=== PATIENT | female | born 1935 | race Two or more races ===

== ENCOUNTER 2016-10-25 13:31 | Emergency (ER) | payer MEDICARE, BC ==
[2016-10-25 14:05] VITALS: RESP 16
[2016-10-25] MEDS ORDERED: SODIUM CHLORIDE 0.9% 500 ML IV STA (14:25)
[2016-10-25] MEDS ORDERED: ONDANSETRON 4 MG/2 ML VIAL IVP STA (14:25)
[2016-10-25 14:33] LABS: Basophils % (A) 0 %; CHCM 33.4; Eosinophils % (A) 0 %; HCT 34.7 % (34.0-46.0); HDW 2.33; HGB 11.6 gm/dL (11.4-16.0); Luc # (Auto) 0.07; Luc % (Auto) 2; Lymphocytes # (A) 0.5 k/uL (1.0-4.8); Lymphocytes % (A) 12 %; MCH 29.2 pg (25.0-35.0); MCHC 33.4 g/dL (31.0-37.0); MCV 87.4 fL (80.0-100.0); Mean Platelet Volume 7.5; Monocytes # (A) 0.2 k/uL (0-1.0); Monocytes % (A) 4 %; Neutrophils # (A) 3.4 k/uL (1.3-7.7); Neutrophils % (A) 81 %; RBC 3.97 m/uL (3.80-5.40); RDW 13.3 % (11.5-15.5); WBC 4.2 k/uL (3.8-10.6); WBC (Perox) 4.62
[2016-10-25 14:43] LABS: ALT 32 U/L (9-52); AST 29 U/L (14-36); Alkaline Phosphatase 62 U/L (38-126); Anion Gap 9 mmol/L; Blood Urea Nitrogen 18 mg/dL (7-17); Calcium 8.6 mg/dL (8.4-10.2); Carbon Dioxide 26 mmol/L (22-30); Chloride 96 mmol/L (98-107); Glucose 128 mg/dL (74-99); Non-African American GFR(MDRD) >60 (>60 ml/min/1.73 sqM); Potassium 3.6 mmol/L (3.5-5.1); Sodium 131 mmol/L (137-145); Total Bilirubin 0.4 mg/dL (0.2-1.3); Total Protein 6.5 g/dL (6.3-8.2)
--- NOTE | 2016-10-25 14:44 | ED ---
General Adult HPI - General Chief complaint: Nausea/Vomiting/Diarrhea Stated complaint: Syncope/vomiting Time Seen by Provider: 10/25/16 14:11 Source: patient, family, EMS, RN notes reviewed Mode of arrival: EMS Limitations: no limitations - History of Present Illness Initial comments: 81-year-old female presenting for nausea and vomiting and diarrhea. Patient states that she was eating lunch and felt very nauseous and vomited and passed out. She did fall to the floor but denies any injury associated, although uncertain if she hit her head. She denies blood thinner use. Daughters state they helped her up and she was able to ambulate without issue. She was diagnosed with influenza 3 days ago at her primary doctor's office. She has not been on Tamiflu or any other medications. States she is still feeling nauseous. She states she had 3 or 4 loose bowel movements today. She denies any abdominal pain associated. She denies any lightheadedness while at rest. Denies any chest pain or shortness of breath. She has had a persistent cough. She denies fevers or chills. - Related Data Home Medications Medication Instructions Recorded Confirmed Aspirin EC [Ecotrin Low Dose] 162 mg PO DAILY 10/25/16 10/25/16 Atorvastatin Calcium [Lipitor] 10 mg PO HS 10/25/16 10/25/16 Calcium Carbonate [Calcium] 1,200 mg PO DAILY 10/25/16 10/25/16 Cholecalciferol [Vitamin D3] 5,000 unit PO DAILY 10/25/16 10/25/16 Metoprolol Succinate [Toprol XL] 25 mg PO DAILY 10/25/16 10/25/16 Olmesartan/Hydrochlorothiazide 1 tab PO DAILY 10/25/16 10/25/16 [Benicar Hct 40-12.5 mg Tablet] Previous Rx's Medication Instructions Recorded Metoclopramide HCl [Reglan] 10 mg PO Q8HR PRN #15 tablet 10/25/16 Allergies Allergy/AdvReac Type Severity Reaction Status Date / Time No Known Allergies Allergy Verified 10/25/16 15:00 Review of Systems ROS Statement: Those systems with pertinent positive or pertinent negative responses have been documented in the HPI. ROS Other: All systems not noted in ROS Statement are negative. Past Medical History Past Medical History: Hyperlipidemia, Hypertension History of Any Multi-Drug Resistant Organisms: None Reported Past Surgical History: Appendectomy, Hysterectomy Past Psychological History: No Psychological Hx Reported Smoking Status: Never smoker Past Alcohol Use History: None Reported Past Drug Use History: None Reported General Exam - General Exam Comments Initial Comments: General: Awake and Alert. No acute distress. Does not appear acutely ill. Eyes: MARIYA, EOM intact. No nystagmus. No scleral icterus. HENT: Atraumatic, normocephalic. Mucous membranes moist. Trachea midline. Neck: The neck is supple, there is no tenderness or JVD. Cardiovascular: Regular rate and rhythm. No murmur, rub, or gallop is appreciated. Distal pulses intact. Respiratory: Lungs are clear to auscultation bilaterally. No wheezes, rales, rhonchi. No respiratory distress. Gastrointestinal: Soft, Nontender. No rebound or guarding. Non-distended. No masses or organomegaly noted. No CVA tenderness. Musculoskeletal: No tenderness. Normal ROM. No gross deformity. No strength deficits. Neurological: A&Ox3. CN II-XII grossly intact, There are no obvious motor or sensory deficits. Coordination appears grossly intact. Speech is normal. Skin: Skin is warm and dry and no rashes or lesions are noted. Psychiatric: Cooperative, appropriate mood & affect, normal judgment. Limitations: no limitations Course Vital Signs 10/25/16 10/25/16 10/25/16 14:01 14:05 15:11 Temperature 96.9 F L 99.5 F 99.9 F H Pulse Rate 77 83 Respiratory 16 16 Rate Blood Pressure 127/59 141/60 O2 Sat by Pulse 98 96 Oximetry 10/25/16 15:37 Temperature 99.4 F Pulse Rate 84 Respiratory 16 Rate Blood Pressure 133/58 O2 Sat by Pulse 95 Oximetry EKG Findings - EKG Comments: EKG Findings:: EKG 14:51. Sinus rhythm. Rate 86. DC 132. QRS 82. QT/QTC 378 /452. Normal axis. No STEMI. Nonspecific EKG. Medical Decision Making - Medical Decision Making 81-year-old female presenting for nausea, vomiting, diarrhea and syncopal episode. Per history and current influenza-positive status, this was vasovagal syncopal episode. Lab work was performed with stable CBC. BMP with evidence of mild dehydration was given IV fluids in the ED. Chest x-ray was done with no acute process. CT Head without acute bleed. EKG without evidence of acute ischemia. Patient was given IV fluids and Zofran. On reevaluation she states she is feeling improved. She was able to ambulate without issue. Discussed continued symptomatic management of influenza and staying well hydrated. Rx for Zofran provided. Discussed possible concussion from fall with daughters and home observation and precautions for this. Discussed continued close follow- up with PCP. Discussed concerning signs and symptoms for immediate return to the ED. Patient and daughters are agreeable with plan and discharge home. - Lab Data Result diagrams: 10/25/16 14:20 10/25/16 14:20 Lab Results 10/25/16 10/25/16 Range/Units 14:20 14:20 WBC 4.2 (3.8-10.6) k/uL RBC 3.97 (3.80-5.40) m/uL Hgb 11.6 (11.4-16.0) gm/dL Hct 34.7 (34.0-46.0) % MCV 87.4 (80.0-100.0) fL MCH 29.2 (25.0-35.0) pg MCHC 33.4 (31.0-37.0) g/dL RDW 13.3 (11.5-15.5) % Plt Count 176 (150-450) k/uL Neutrophils % 81 % Lymphocytes % 12 % Monocytes % 4 % Eosinophils % 0 % Basophils % 0 % Neutrophils # 3.4 (1.3-7.7) k/uL Lymphocytes # 0.5 L (1.0-4.8) k/uL Monocytes # 0.2 (0-1.0) k/uL Eosinophils # 0.0 (0-0.7) k/uL Basophils # 0.0 (0-0.2) k/uL Sodium 131 L (137-145) mmol/L Potassium 3.6 (3.5-5.1) mmol/L Chloride 96 L (98-107) mmol/L Carbon Dioxide 26 (22-30) mmol/L Anion Gap 9 mmol/L BUN 18 H (7-17) mg/dL Creatinine 0.70 (0.52-1.04) mg/dL Est GFR (MDRD) Af Amer >60 (>60 ml/min/1.73 sqM) Est GFR (MDRD) Non-Af >60 (>60 ml/min/1.73 sqM) Glucose 128 H (74-99) mg/dL Calcium 8.6 (8.4-10.2) mg/dL Total Bilirubin 0.4 (0.2-1.3) mg/dL AST 29 (14-36) U/L ALT 32 (9-52) U/L Alkaline Phosphatase 62 (38-126) U/L Total Protein 6.5 (6.3-8.2) g/dL Albumin 3.6 (3.5-5.0) g/dL - EKG Data -: EKG Interpreted by Ut EKG shows normal: sinus rhythm Rate: normal - Radiology Data Radiology results: report reviewed, image reviewed Disposition Clinical Impression: Influenza, Syncope, Nausea vomiting and diarrhea, Fall Disposition: HOME SELF-CARE Condition: Stable Instructions: Influenza (ED), Acute Nausea and Vomiting (ED), Acute Diarrhea ( ED), Concussion (ED) Prescriptions: Metoclopramide HCl [Reglan] 10 mg PO Q8HR PRN #15 tablet PRN Reason: Nausea Referrals: Cody Jackson MD [Primary Care Provider] - 1-2 days Time of Disposition: 16:23
--- NOTE | 2016-10-25 15:13 | XR ---
EXAMINATION TYPE: XR chest 2V DATE OF EXAM: 10/25/2016 3:09 PM COMPARISON: 08/16/2010 INDICATION: Pain TECHNIQUE: Single frontal view of the chest is obtained. FINDINGS: The heart size is normal. The pulmonary vasculature is normal. The lungs are clear. IMPRESSION: 1. No acute pulmonary process.
[2016-10-25] MEDS ORDERED: METOCLOPRAMIDE 5 MG/ML 2 ML VIAL IVP STA (15:27)
[2016-10-25 15:38] VITALS: BP 133/58; PULSE 84; TEMP 99.4
--- NOTE | 2016-10-25 16:18 | CT ---
EXAMINATION TYPE: CT brain wo con DATE OF EXAM: 10/25/2016 4:07 PM COMPARISON: Previous study dated 03/27/2010. HISTORY: Syncope with posterior head injury. CT DLP: 997.80 mGycm Automated exposure control for dose reduction was used. FINDINGS: There are mild, generalized changes of sulcal prominence and ventriculomegaly compatible wi th atrophic change. There is diffuse periventricular white matter lucency, compatible with chronic small vessel ischemic change. There is no acute focal lesion, mass effect or midline shift identified. I do not see evidenc e of intracranial blood. There bilateral maxillary air-fluid levels. The mucoperiosteal thickening involving the ethmoid air c ells bilaterally. There is underaeration of the right-sided mastoid. IMPRESSION: 1. NO ACUTE INTRACRANIAL ABNORMALITY. 2. ATROPHIC CHANGE. 3. CHRONIC WHITE MATTER ISCHEMIC CHANGE. 4. 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 5. 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
== END 2016-10-25 16:27 | disposition home or self-care (01) ==
LOC: EC 13:31
DX: J11.1 Influenza due to unidentified influenza virus with other respiratory manifestations (principal); E86.0 Dehydration; R55 Syncope and collapse; R11.2 Nausea with vomiting, unspecified; E78.5 Hyperlipidemia, unspecified; I10 Essential (primary) hypertension; Z79.82 Long term (current) use of aspirin; Z79.899 Other long term (current) drug therapy; W13.3XXA Fall through floor, initial encounter
CPT/HCPCS: 99285; 96374; 96375; 96361 ×2; 36415; 93005; 80053; 85025; 71020; 70450; J2765; J2405

== ENCOUNTER 2016-12-23 14:55 | Emergency (ER) | payer MEDICARE, BC ==
[2016-12-23] MEDS ORDERED: SODIUM CHLORIDE 0.9% 1,000 ML IV STA (14:58)
[2016-12-23] MEDS ORDERED: ONDANSETRON 4 MG/2 ML VIAL IVP STA (14:59)
--- NOTE | 2016-12-23 15:01 | ED ---
General Adult HPI - General Stated complaint: syncope Time Seen by Provider: 12/23/16 14:55 Source: RN notes reviewed - History of Present Illness Initial comments: This is an 81-year-old female who presents emergency Department complains that while at a graduation alliance party she became very hot and nauseated and then she passed out. According to bystanders he passed out for about 20 seconds. Patient states then she got up still was nauseated and vomited. Patient states currently she is feeling better but she believes she was just getting too hot while at the graduation alliance party. Patient denies any chest pain palpitations difficult to breathing or shortness of breath. Patient denies being sick recently with any fever chills or cough. Patient denies any lightheadedness dizziness now. Patient denies any numbness weakness. Patient denies abdominal pain. Patient denies any diarrhea. Patient denies any dysuria hematuria urinary frequency. - Related Data Home Medications Medication Instructions Recorded Confirmed Aspirin EC [Ecotrin Low Dose] 162 mg PO DAILY 10/25/16 10/25/16 Atorvastatin Calcium [Lipitor] 10 mg PO HS 10/25/16 10/25/16 Calcium Carbonate [Calcium] 1,200 mg PO DAILY 10/25/16 10/25/16 Cholecalciferol [Vitamin D3] 5,000 unit PO DAILY 10/25/16 10/25/16 Metoprolol Succinate [Toprol XL] 25 mg PO DAILY 10/25/16 10/25/16 Olmesartan/Hydrochlorothiazide 1 tab PO DAILY 10/25/16 10/25/16 [Benicar Hct 40-12.5 mg Tablet] Previous Rx's Medication Instructions Recorded Metoclopramide HCl [Reglan] 10 mg PO Q8HR PRN #15 tablet 10/25/16 Allergies Allergy/AdvReac Type Severity Reaction Status Date / Time Penicillins Allergy Unknown Verified 12/23/16 16:30 Childhood Review of Systems ROS Statement: Those systems with pertinent positive or pertinent negative responses have been documented in the HPI. ROS Other: All systems not noted in ROS Statement are negative. Past Medical History Past Medical History: Hyperlipidemia, Hypertension History of Any Multi-Drug Resistant Organisms: None Reported Past Surgical History: Appendectomy, Hysterectomy Past Psychological History: No Psychological Hx Reported Smoking Status: Never smoker Past Alcohol Use History: None Reported Past Drug Use History: None Reported General Exam - General Exam Comments Initial Comments: GENERAL: Patient is well-developed and well-nourished. Patient is nontoxic and well- hydrated and is in mild distress. ENT: Neck is soft and supple. No significant lymphadenopathy is noted. Oropharynx is clear. Moist mucous membranes. Neck has full range of motion without eliciting any pain. EYES: The sclera were anicteric and conjunctiva were pink and moist. Extraocular movements were intact and pupils were equal round and reactive to light. Eyelids were unremarkable. PULMONARY: Unlabored respirations. Good breath sounds bilaterally. No audible rales rhonchi or wheezing was noted. CARDIOVASCULAR: There is a regular rate and rhythm without any murmurs gallops or rubs. ABDOMEN: Soft and nontender with normal bowel sounds. No palpable organomegaly was noted. There is no palpable pulsatile mass. SKIN: Skin is clear with no lesions or rashes and otherwise unremarkable. NEUROLOGIC: Patient is alert and oriented x3. Cranial nerves II through XII are grossly intact. Motor and sensory are also intact. Normal speech, volume and content. Symmetrical smile. MUSCULOSKELETAL: Normal extremities with adequate strength and full range of motion. No lower extremity swelling or edema. No calf tenderness. LYMPHATICS: No significant lymphadenopathy is noted PSYCHIATRIC: Normal psychiatric evaluation. Normal interpersonal interactions appears functionally intact in deals appropriately with others. No signs of depression. No signs of anxiety. Course Vital Signs 12/23/16 12/23/16 12/23/16 14:56 15:10 15:26 Temperature 98.6 F Pulse Rate 86 81 Pulse Rate [ 84 Right Sitting] Pulse Rate [ 88 Right Standing] Pulse Rate [ 82 Right Supine] Respiratory 16 16 18 Rate Blood Pressure 131/67 153/68 Blood Pressure 157/66 [Right Arm Sitting] Blood Pressure 145/65 [Right Arm Standing] Blood Pressure 141/73 [Right Arm Supine] O2 Sat by Pulse 99 99 99 Oximetry Medical Decision Making - Medical Decision Making EKG shows a sinus rhythm with occasional PAC at 86 bpm MS interval is 134 QRS is 80 QT interval 372 QTC is 445. Patient to EKG shows no ST segment elevation or depression or T wave abnormalities are noted. Patient received a liter of fluid in the emergency department felt considerably better was able to ambulate without problem. - Lab Data Result diagrams: 12/23/16 15:00 12/23/16 15:00 Lab Results 12/23/16 12/23/16 12/23/16 Range/Units 15:00 15:00 15:00 WBC 9.5 (3.8-10.6) k/uL RBC 3.86 (3.80-5.40) m/uL Hgb 11.4 (11.4-16.0) gm/dL Hct 34.2 (34.0-46.0) % MCV 88.5 (80.0-100.0) fL MCH 29.4 (25.0-35.0) pg MCHC 33.2 (31.0-37.0) g/dL RDW 14.1 (11.5-15.5) % Plt Count 258 (150-450) k/uL Neutrophils % 72 % Lymphocytes % 21 % Monocytes % 5 % Eosinophils % 0 % Basophils % 0 % Neutrophils # 6.8 (1.3-7.7) k/uL Lymphocytes # 2.0 (1.0-4.8) k/uL Monocytes # 0.5 (0-1.0) k/uL Eosinophils # 0.0 (0-0.7) k/uL Basophils # 0.0 (0-0.2) k/uL PT (9.0-12.0) sec INR (<1.1) APTT (22.0-30.0) sec Sodium 135 L (137-145) mmol/L Potassium 3.7 (3.5-5.1) mmol/L Chloride 104 (98-107) mmol/L Carbon Dioxide 21 L (22-30) mmol/L Anion Gap 10 mmol/L BUN 27 H (7-17) mg/dL Creatinine 0.66 (0.52-1.04) mg/dL Est GFR (MDRD) Af Amer >60 (>60 ml/min/1.73 sqM) Est GFR (MDRD) Non-Af >60 (>60 ml/min/1.73 sqM) Glucose 124 H (74-99) mg/dL Calcium 8.9 (8.4-10.2) mg/dL Magnesium 1.7 (1.6-2.3) mg/dL Total Bilirubin 0.5 (0.2-1.3) mg/dL AST 22 (14-36) U/L ALT 22 (9-52) U/L Alkaline Phosphatase 65 (38-126) U/L Total Creatine Kinase 133 (30-135) U/L CK-MB (CK-2) 1.3 (0.0-2.4) ng/mL CK-MB (CK-2) Rel Index 1.0 Troponin I <0.012 (0.000-0.034) ng/mL Total Protein 6.7 (6.3-8.2) g/dL Albumin 3.7 (3.5-5.0) g/dL Urine Color Urine Appearance (Clear) Urine pH (5.0-8.0) Ur Specific [place] (1.001-1.035) Urine Protein (Negative) Urine Glucose (UA) (Negative) Urine Ketones (Negative) Urine Blood (Negative) Urine Nitrite (Negative) Urine Bilirubin (Negative) Urine Urobilinogen (<2.0) mg/dL Ur Leukocyte Esterase (Negative) Urine RBC (0-5) /hpf Urine WBC (0-5) /hpf Ur Squamous Epith Cells (0-4) /hpf Urine Bacteria (None) /hpf Cellular Casts (0) /lpf Hyaline Casts (0-2) /lpf Urine Mucus (None) /hpf 12/23/16 12/23/16 Range/Units 15:00 15:25 WBC (3.8-10.6) k/uL RBC (3.80-5.40) m/uL Hgb (11.4-16.0) gm/dL Hct (34.0-46.0) % MCV (80.0-100.0) fL MCH (25.0-35.0) pg MCHC (31.0-37.0) g/dL RDW (11.5-15.5) % Plt Count (150-450) k/uL Neutrophils % % Lymphocytes % % Monocytes % % Eosinophils % % Basophils % % Neutrophils # (1.3-7.7) k/uL Lymphocytes # (1.0-4.8) k/uL Monocytes # (0-1.0) k/uL Eosinophils # (0-0.7) k/uL Basophils # (0-0.2) k/uL PT 10.4 (9.0-12.0) sec INR 1.0 (<1.1) APTT 21.6 L (22.0-30.0) sec Sodium (137-145) mmol/L Potassium (3.5-5.1) mmol/L Chloride (98-107) mmol/L Carbon Dioxide (22-30) mmol/L Anion Gap mmol/L BUN (7-17) mg/dL Creatinine (0.52-1.04) mg/dL Est GFR (MDRD) Af Amer (>60 ml/min/1.73 sqM) Est GFR (MDRD) Non-Af (>60 ml/min/1.73 sqM) Glucose (74-99) mg/dL Calcium (8.4-10.2) mg/dL Magnesium (1.6-2.3) mg/dL Total Bilirubin (0.2-1.3) mg/dL AST (14-36) U/L ALT (9-52) U/L Alkaline Phosphatase (38-126) U/L Total Creatine Kinase (30-135) U/L CK-MB (CK-2) (0.0-2.4) ng/mL CK-MB (CK-2) Rel Index Troponin I (0.000-0.034) ng/mL Total Protein (6.3-8.2) g/dL Albumin (3.5-5.0) g/dL Urine Color Yellow Urine Appearance Clear (Clear) Urine pH 6.5 (5.0-8.0) Ur Specific [place] 1.014 (1.001-1.035) Urine Protein Negative (Negative) Urine Glucose (UA) Negative (Negative) Urine Ketones Negative (Negative) Urine Blood Small H (Negative) Urine Nitrite Negative (Negative) Urine Bilirubin Negative (Negative) Urine Urobilinogen <2.0 (<2.0) mg/dL Ur Leukocyte Esterase Negative (Negative) Urine RBC 3 (0-5) /hpf Urine WBC <1 (0-5) /hpf Ur Squamous Epith Cells <1 (0-4) /hpf Urine Bacteria Rare H (None) /hpf Cellular Casts 1 (0) /lpf Hyaline Casts 6 H (0-2) /lpf Urine Mucus Rare H (None) /hpf Disposition Clinical Impression: Orthostatic hypotension, Dehydration Disposition: HOME SELF-CARE Condition: Good Instructions: Hypotension (ED), Dehydration (ED) Referrals: Cody Jackson MD [Primary Care Provider] - 1-2 days Time of Disposition: 16:31
[2016-12-23 15:22] LABS: Basophils % (A) 0 %; CH 29.3; CHCM 33.2; Eosinophils % (A) 0 %; HCT 34.2 % (34.0-46.0); HGB 11.4 gm/dL (11.4-16.0); Luc % (Auto) 2; Lymphocytes % (A) 21 %; MCH 29.4 pg (25.0-35.0); MCHC 33.2 g/dL (31.0-37.0); MCV 88.5 fL (80.0-100.0); Mean Platelet Volume 7.5; Monocytes # (A) 0.5 k/uL (0-1.0); Monocytes % (A) 5 %; Neutrophils # (A) 6.8 k/uL (1.3-7.7); Neutrophils % (A) 72 %; RBC 3.86 m/uL (3.80-5.40); RDW 14.1 % (11.5-15.5); WBC 9.5 k/uL (3.8-10.6); WBC (Perox) 9.99
--- NOTE | 2016-12-23 15:24 | XR ---
EXAMINATION TYPE: XR chest 2V DATE OF EXAM: 12/23/2016 3:17 PM COMPARISON: 10/25/2016 HISTORY: Syncope TECHNIQUE: Frontal and lateral views of the chest are obtained. FINDINGS: There is no gross heart failure. Heart is slightly enlarged. There are no hilar masses. Th oracic aorta is atheromatous. There are chest leads. There is no pleural effusion. IMPRESSION: No active cardiopulmonary disease. No significant change compared to old exam.
[2016-12-23 15:34] LABS: ALT 22 U/L (9-52); AST 22 U/L (14-36); Alkaline Phosphatase 65 U/L (38-126); Anion Gap 10 mmol/L; Blood Urea Nitrogen 27 mg/dL (7-17); Calcium 8.9 mg/dL (8.4-10.2); Carbon Dioxide 21 mmol/L (22-30); Chloride 104 mmol/L (98-107); Glucose 124 mg/dL (74-99); Magnesium 1.7 mg/dL (1.6-2.3); Non-African American GFR(MDRD) >60 (>60 ml/min/1.73 sqM); Potassium 3.7 mmol/L (3.5-5.1); Sodium 135 mmol/L (137-145); Total Bilirubin 0.5 mg/dL (0.2-1.3); Total Protein 6.7 g/dL (6.3-8.2)
[2016-12-23 15:36] LABS: Prothrombin Time 10.4 sec (9.0-12.0)
[2016-12-23 15:48] LABS: Creatine Kinase 133 U/L (30-135)
[2016-12-23 15:52] LABS: Partial Thromboplastin Time 21.6 sec (22.0-30.0)
[2016-12-23 16:00] LABS: Creatine Kinase MB 1.3 ng/mL (0.0-2.4); Troponin I <0.012 ng/mL (0.000-0.034)
[2016-12-23 16:02] LABS: Appearance,Urine Clear (Clear); Bacteria,Urine Rare /hpf; Bilirubin,Urine Negative (Negative); Glucose,Urine (UA) Negative (Negative); Ketones,Urine Negative (Negative); Leukocyte Esterase,Urine Negative (Negative); Mucus,Urine Rare /hpf; Nitrite,Urine Negative (Negative); PH, Urine 6.5 (5.0-8.0); Particle Count 1482; Protein,Urine Negative (Negative); RBC,Urine 3 /hpf (0-5); Specific Gravity,Urine 1.014 (1.001-1.035); Squamous Epithelial Cell,Urine <1 /hpf (0-4); UA Billing (MACRO vs. MICRO) MICRO; Urobilinogen,Urine <2.0 mg/dL (<2.0); WBC,Urine <1 /hpf (0-5)
[2016-12-23 16:33] VITALS: RESP 20
[2016-12-23 17:13] VITALS: BP 147/72; PULSE 71; TEMP 98.3
== END 2016-12-23 17:13 | disposition home or self-care (01) ==
LOC: EC 14:55
DX: I95.1 Orthostatic hypotension (principal); E86.0 Dehydration; I49.1 Atrial premature depolarization; R11.2 Nausea with vomiting, unspecified; E78.5 Hyperlipidemia, unspecified; I10 Essential (primary) hypertension; Z79.82 Long term (current) use of aspirin; Z79.899 Other long term (current) drug therapy; Z88.0 Allergy status to penicillin
CPT/HCPCS: 36415; 93005; 80053; 82550; 82553; 83735; 84484; 85025; 85610; 85730; 81001; 71020; 99284; 96374; 96361; J2405

== ENCOUNTER → 2017-01-18 | Outpatient (CLI) | payer MEDICARE, BC ==
--- NOTE | 2017-01-23 08:07 | MM ---
Reason for exam: screening (asymptomatic). Last mammogram was performed 1 year ago. History: Patient is postmenopausal and had first child at age 34. Physical Findings: A clinical breast exam by your physician is recommended on an annual basis and results should be correlated with mammographic findings. MG 3D Screening Mammo W/Cad Bilateral CC and MLO view(s) were taken. Prior study comparison: January 18, 2016, bilateral MG 3d screening mammo w/cad. January 04, 2015, bilateral MG screening mammo w CAD. The breast tissue is extremely dense which could obscure a lesion on mammography. No significant changes when compared with prior studies. ASSESSMENT: Benign, BI-RAD 2 RECOMMENDATION: Routine screening mammogram of both breasts in 1 year.
== END | disposition home or self-care (01) ==
LOC: RADMAMWWP 09:06
PROVIDERS: ATTEND Internal Medicine Geriatric Medicine
DX: Z12.31 Encounter for screening mammogram for malignant neoplasm of breast (principal)
CPT/HCPCS: 77063; G0202

== ENCOUNTER 2017-02-15 04:55 | Emergency (ER) | payer MEDICARE, BC ==
[2017-02-15 05:07] VITALS: RESP 18
[2017-02-15] MEDS ORDERED: SODIUM CHLORIDE 0.9% 1,000 ML IV STA (05:19)
[2017-02-15] MEDS ORDERED: MORPHINE SULFATE 4 MG/ML SYRINGE IV STA (05:19)
--- NOTE | 2017-02-15 05:22 | ED ---
General Adult HPI - General Source: patient, family, RN notes reviewed Mode of arrival: wheelchair Limitations: no limitations <Amadeo Dorsey - Last Filed: 02/15/17 06:38> <Bismark Fitzgerald - Last Filed: 02/15/17 08:06> - General Chief complaint: Extremity Injury, Upper Stated complaint: Right Shoulder Pain Time Seen by Provider: 02/15/17 05:12 - History of Present Illness Initial comments: Patient is a pleasant 81-year-old female presenting to the emergency Department with right-sided thoracic back pain. Onset of symptoms was 2 days ago. Symptoms are positional. Symptoms do worsen with arm movement and deep breaths. Patient does have recent history of pneumonia. Patient has been coughing. Cough is somewhat improved. No dyspnea. No history of similar symptoms previously. Area of discomfort is right upper thoracic region medial to the scapula. (Amadeo Dorsey) - Related Data Home Medications Medication Instructions Recorded Confirmed Aspirin EC [Ecotrin Low Dose] 162 mg PO W/SUPPER 10/25/16 12/23/16 Atorvastatin Calcium [Lipitor] 10 mg PO Q48H 10/25/16 12/23/16 Calcium Carbonate [Calcium] 600 mg PO W/SUPPER 10/25/16 12/23/16 Cholecalciferol [Vitamin D3] 1,000 unit PO W/SUPPER 10/25/16 12/23/16 Metoprolol Succinate [Toprol XL] 25 mg PO DAILY 10/25/16 12/23/16 Olmesartan/Hydrochlorothiazide 1 tab PO DAILY 10/25/16 12/23/16 [Benicar Hct 40-12.5 mg Tablet] Allergies Allergy/AdvReac Type Severity Reaction Status Date / Time Penicillins Allergy Unknown Verified 02/15/17 05:07 Childhood Review of Systems ROS Other: All systems not noted in ROS Statement are negative. Constitutional: Denies: fever Eyes: Denies: eye pain ENT: Denies: ear pain Respiratory: Reports: cough Cardiovascular: Denies: chest pain Endocrine: Denies: fatigue Gastrointestinal: Denies: abdominal pain Genitourinary: Denies: dysuria Musculoskeletal: Reports: back pain Skin: Denies: rash <Amadeo Dorsey - Last Filed: 02/15/17 06:38> ROS Other: All systems not noted in ROS Statement are negative. <Bismark Fitzgerald - Last Filed: 02/15/17 08:06> ROS Statement: Those systems with pertinent positive or pertinent negative responses have been documented in the HPI. Past Medical History Past Medical History: Hyperlipidemia, Hypertension History of Any Multi-Drug Resistant Organisms: None Reported Past Surgical History: Appendectomy, Hysterectomy Past Psychological History: No Psychological Hx Reported Smoking Status: Never smoker Past Alcohol Use History: None Reported Past Drug Use History: None Reported <Amadeo Dorsey - Last Filed: 02/15/17 06:38> General Exam Limitations: no limitations General appearance: alert, in no apparent distress Head exam: Present: atraumatic Eye exam: Present: normal appearance, PERRL ENT exam: Present: normal oropharynx Neck exam: Present: normal inspection Respiratory exam: Present: normal lung sounds bilaterally. Absent: chest wall tenderness Cardiovascular Exam: Present: regular rate, normal rhythm Expanded Peripheral pulses: 2+: Radial (R), Radial (L), Posterior Tibialis (R), Posterior Tibialis (L) GI/Abdominal exam: Present: soft. Absent: tenderness Extremities exam: Present: normal inspection Back exam: Present: tenderness (Patient does have point tenderness of the right upper thoracic back, medial to the scapula.) Neurological exam: Present: alert Psychiatric exam: Present: normal affect, normal mood Skin exam: Present: normal color <Amadeo Dorsey - Last Filed: 02/15/17 06:38> General appearance: alert, in no apparent distress Head exam: Present: atraumatic, normocephalic, normal inspection Eye exam: Present: normal appearance, PERRL, EOMI. Absent: scleral icterus, conjunctival injection, periorbital swelling ENT exam: Present: normal exam, mucous membranes moist Neck exam: Present: normal inspection. Absent: tenderness, meningismus, lymphadenopathy Respiratory exam: Present: normal lung sounds bilaterally. Absent: respiratory distress, wheezes, rales, rhonchi, stridor Cardiovascular Exam: Present: regular rate, normal rhythm, normal heart sounds. Absent: systolic murmur, diastolic murmur, rubs, gallop, clicks GI/Abdominal exam: Present: soft, normal bowel sounds. Absent: distended, tenderness, guarding, rebound, rigid Extremities exam: Present: normal inspection, full ROM, normal capillary refill. Absent: tenderness, pedal edema, joint swelling, calf tenderness Back exam: Present: normal inspection Neurological exam: Present: alert, oriented X3, CN II-XII intact Psychiatric exam: Present: normal affect, normal mood Skin exam: Present: warm, dry, intact, normal color. Absent: rash <Bismark Fitzgerald - Last Filed: 02/15/17 08:06> Course <Amadeo Dorsey - Last Filed: 02/15/17 06:38> <Bismark Fitzgerald - Last Filed: 02/15/17 08:06> Vital Signs 02/15/17 02/15/17 02/15/17 05:03 05:56 07:07 Temperature 96.7 F L 98.6 F Pulse Rate 91 85 87 Respiratory 18 18 18 Rate Blood Pressure 134/61 127/60 117/56 O2 Sat by Pulse 97 98 97 Oximetry - Reevaluation(s) Reevaluation #1: 02/15/17 08:06 Patient's in no acute distress (Bismark Fitzgerald) Medical Decision Making - Lab Data Result diagrams: 02/15/17 05:34 02/15/17 05:34 - Radiology Data Radiology results: image reviewed (Chest x-ray shows no acute process) <Amadeo Dorsey - Last Filed: 02/15/17 06:38> - Lab Data Result diagrams: 02/15/17 05:34 02/15/17 05:34 - Radiology Data Radiology results: report reviewed (CT chest is negative), image reviewed <Bismark Fitzgerald - Last Filed: 02/15/17 08:06> - Medical Decision Making 81 female ER for evaluation. Patient presents today for evaluation of arm pain. Pain at this point describes resolved, CT negative clavipectoral patient will be discharged home (Bismark Fitzgerald) - Lab Data Lab Results 02/15/17 02/15/17 02/15/17 Range/Units 05:34 05:34 05:34 WBC 9.1 (3.8-10.6) k/uL RBC 4.07 (3.80-5.40) m/uL Hgb 12.1 (11.4-16.0) gm/dL Hct 35.2 (34.0-46.0) % MCV 86.4 (80.0-100.0) fL MCH 29.8 (25.0-35.0) pg MCHC 34.5 (31.0-37.0) g/dL RDW 14.4 (11.5-15.5) % Plt Count 311 (150-450) k/uL Neutrophils % 75 % Lymphocytes % 18 % Monocytes % 5 % Eosinophils % 1 % Basophils % 1 % Neutrophils # 6.8 (1.3-7.7) k/uL Lymphocytes # 1.7 (1.0-4.8) k/uL Monocytes # 0.5 (0-1.0) k/uL Eosinophils # 0.0 (0-0.7) k/uL Basophils # 0.1 (0-0.2) k/uL PT 10.0 (9.0-12.0) sec INR 1.0 (<1.2) APTT 25.8 (22.0-30.0) sec D-Dimer 0.61 H (<0.60) mg/L FEU Sodium 136 L (137-145) mmol/L Potassium 4.0 (3.5-5.1) mmol/L Chloride 100 (98-107) mmol/L Carbon Dioxide 24 (22-30) mmol/L Anion Gap 12 mmol/L BUN 18 H (7-17) mg/dL Creatinine 0.70 (0.52-1.04) mg/dL Est GFR (MDRD) Af Amer >60 (>60 ml/min/1.73 sqM) Est GFR (MDRD) Non-Af >60 (>60 ml/min/1.73 sqM) Glucose 107 H (74-99) mg/dL Calcium 9.6 (8.4-10.2) mg/dL Total Bilirubin 0.5 (0.2-1.3) mg/dL AST 18 (14-36) U/L ALT 31 (9-52) U/L Alkaline Phosphatase 83 (38-126) U/L Total Protein 7.1 (6.3-8.2) g/dL Albumin 4.1 (3.5-5.0) g/dL Disposition <Amadeo Dorsey - Last Filed: 02/15/17 06:38> <Bismark Fitzgerald - Last Filed: 02/15/17 08:06> Clinical Impression: Right shoulder pain, Strain of shoulder Disposition: HOME SELF-CARE Condition: Good Instructions: Shoulder Pain (ED) Referrals: Cody Jackson MD [Primary Care Provider] - 1-2 days
[2017-02-15 05:46] LABS: Basophils # (A) 0.1 k/uL (0-0.2); Basophils % (A) 1 %; CH 29.5; CHCM 34.3; Eosinophils % (A) 1 %; HCT 35.2 % (34.0-46.0); HDW 2.29; HGB 12.1 gm/dL (11.4-16.0); Luc # (Auto) 0.12; Luc % (Auto) 1; Lymphocytes # (A) 1.7 k/uL (1.0-4.8); Lymphocytes % (A) 18 %; MCH 29.8 pg (25.0-35.0); MCHC 34.5 g/dL (31.0-37.0); MCV 86.4 fL (80.0-100.0); Monocytes # (A) 0.5 k/uL (0-1.0); Monocytes % (A) 5 %; Neutrophils # (A) 6.8 k/uL (1.3-7.7); Neutrophils % (A) 75 %; RBC 4.07 m/uL (3.80-5.40); RDW 14.4 % (11.5-15.5); WBC 9.1 k/uL (3.8-10.6); WBC (Perox) 8.63
[2017-02-15 05:57] LABS: ALT 31 U/L (9-52); AST 18 U/L (14-36); Alkaline Phosphatase 83 U/L (38-126); Anion Gap 12 mmol/L; Blood Urea Nitrogen 18 mg/dL (7-17); Calcium 9.6 mg/dL (8.4-10.2); Carbon Dioxide 24 mmol/L (22-30); Chloride 100 mmol/L (98-107); Glucose 107 mg/dL (74-99); Non-African American GFR(MDRD) >60 (>60 ml/min/1.73 sqM); Sodium 136 mmol/L (137-145); Total Bilirubin 0.5 mg/dL (0.2-1.3); Total Protein 7.1 g/dL (6.3-8.2)
[2017-02-15] MEDS ORDERED: ONDANSETRON 4 MG/2 ML VIAL IVP STA (05:58)
[2017-02-15 06:06] LABS: Partial Thromboplastin Time 25.8 sec (22.0-30.0)
[2017-02-15] MEDS ORDERED: RX INFO: IV CONTRAST WAS GIVEN 1 EACH MISC MISCELLANE PRN (06:08)
--- NOTE | 2017-02-15 06:15 | XR ---
EXAM: XR Chest, 2 Views CLINICAL HISTORY: Reason: pain TECHNIQUE: Frontal and lateral views of the chest. COMPARISON: Chest x-ray 12/23/16 FINDINGS: Lungs: Unremarkable. No consolidation. Pleural space: No pleural effusion. No pneumothorax. Heart: Unremarkable. No cardiomegaly. Mediastinum: Unremarkable. Bones/joints: Osseous structures are intact. IMPRESSION: No acute cardiopulmonary disease.
--- NOTE | 2017-02-15 07:23 | CT ---
EXAMINATION TYPE: CT angio chest DATE OF EXAM: 02/15/2017 7:06 AM COMPARISON: NONE HISTORY: Patient complains of right shoulder pain. CT DLP: 400 mGycm Automated exposure control for dose reduction was used. CONTRAST: CTA scan of the thorax is performed with IV Contrast, patient injected with 100 mL of Omnipaque 350, pulmonary embolism protocol. . FINDINGS: There is atelectasis or consolidation at both lung bases. There is no significant axillary, internal mammary, mediastinal or hilar adenopathy. There is no evidence of pulmonary embolus. The heart is mildly enlarged. The aorta is normal in calib er. There is no pleural or pericardial fluid. Visualized portions of the upper abdomen are unremarkable. There is mild hypertrophic spondylosis within the spine. IMPRESSION: 1. THIS EXAMINATION IS NEGATIVE FOR PULMONARY EMBOLUS. 2. ATELECTASIS VERSUS CONSOLIDATION, BOTH LUNG BASES. 3. CARDIOMEGALY.
[2017-02-15] MEDS ORDERED: KETOROLAC 30 MG/ML 1 ML VIAL IVP STA (07:34)
[2017-02-15] MEDS ORDERED: MORPHINE SULFATE 4 MG/ML SYRINGE IVP STA (07:34)
[2017-02-15 08:20] VITALS: BP 128/60; PULSE 77; TEMP 98.5
== END 2017-02-15 08:22 | disposition home or self-care (01) ==
LOC: EC 04:55
DX: S46.911A Strain of unspecified muscle, fascia and tendon at shoulder and upper arm level, right arm, initial encounter (principal); M54.6 Pain in thoracic spine; R05 Cough; E78.5 Hyperlipidemia, unspecified; I10 Essential (primary) hypertension; Z79.82 Long term (current) use of aspirin; Z79.899 Other long term (current) drug therapy; Z88.0 Allergy status to penicillin; X50.0XXA Overexertion from strenuous movement or load, initial encounter; Y93.89 Activity, other specified
CPT/HCPCS: 36415; 85379; 80053; 85025; 85610; 85730; 71020; 71275; 99284; 96374; 96375 ×2; 96376; 96361 ×2; J2270; Q9967; J2405; J1885

== ENCOUNTER → 2017-04-12 | Outpatient (CLI) | payer MEDICARE, BC ==
--- NOTE | 2017-04-12 15:19 | XR ---
EXAMINATION TYPE: XR cervical spine comp DATE OF EXAM: 04/12/2017 COMPARISON: NONE HISTORY: Neck pain TECHNIQUE: 5 view cervical spine FINDINGS: There is moderate stenosis of the left C6-7 foramen. Mild foraminal narrowing at C5-6 C6-7 is present on the right. There is loss of disc height C5-6 C6-7. A grade 1 spondylolisthesis of C6 anteriorly on C7 is present posterior spinal lamellar line is intact. Odontoid is nondiagnostic due to overlying occiput. Vertebral body heights are preserved. Prevertebral space appears within normal limits. IMPRESSION: 1. Grade 1 spondylolisthesis of C6 anteriorly on C7. 2. Degenerative disc changes C5-6, C6-7. 3. Lower cervical spine foraminal stenosis discussed above.
== END | disposition home or self-care (01) ==
LOC: RADXRMAIN 10:13
PROVIDERS: ATTEND Internal Medicine Geriatric Medicine
DX: M99.71 Connective tissue and disc stenosis of intervertebral foramina of cervical region (principal); M43.12 Spondylolisthesis, cervical region; M47.812 Spondylosis without myelopathy or radiculopathy, cervical region
CPT/HCPCS: 72050

== ENCOUNTER 2017-10-27 08:58 | Emergency (ER) | payer MEDICARE, BC ==
[2017-10-27 09:01] VITALS: TEMP 98
[2017-10-27] MEDS ORDERED: HYDROcodone/APAP 5-325MG 1 EACH TAB PO STA (09:15)
[2017-10-27] MEDS ORDERED: DIAZEPAM 5 MG TAB PO STA (09:15)
--- NOTE | 2017-10-27 09:21 | ED ---
General Adult HPI - General Chief complaint: Neck Pain/Injury Stated complaint: Neck Pain Time Seen by Provider: 10/27/17 09:08 Source: patient, RN notes reviewed Mode of arrival: ambulatory Limitations: no limitations - History of Present Illness Initial comments: Patient 82-year-old female presenting to the emergency room today with a chief complaint of increased neck pain, headache over the last 6 days. Patient denies any specific injury or trauma. Patient doesn't that she had a pain in her neck in the past but was not as severe. She states seems to be shooting up into her head. She states it's worse with any rotation specifically rotating to the right than the left. She denies any other complaints or symptoms. Patient denies any recent fever, chills, shortness of breath, chest pain, back pain, abdominal pain, nausea or vomiting, numbness or tingling, visual changes, or any other complaints. - Related Data Home Medications Medication Instructions Recorded Confirmed Aspirin EC [Ecotrin Low Dose] 162 mg PO HS 10/25/16 02/15/17 Atorvastatin Calcium [Lipitor] 10 mg PO Q48H 10/25/16 02/15/17 Calcium Carbonate [Calcium] 600 mg PO HS 10/25/16 02/15/17 Cholecalciferol [Vitamin D3] 5,000 unit PO MOWEFR 10/25/16 02/15/17 Metoprolol Succinate [Toprol XL] 25 mg PO DAILY 10/25/16 02/15/17 Olmesartan/Hydrochlorothiazide 0.5 tab PO DAILY 10/25/16 02/15/17 [Benicar Hct 40-12.5 mg Tablet] Previous Rx's Medication Instructions Recorded Cyclobenzaprine [Flexeril] 1 - 2 tab PO TID #20 tablet 10/27/17 Allergies Allergy/AdvReac Type Severity Reaction Status Date / Time Penicillins Allergy Unknown Verified 10/27/17 09:01 Childhood Review of Systems ROS Statement: Those systems with pertinent positive or pertinent negative responses have been documented in the HPI. ROS Other: All systems not noted in ROS Statement are negative. Past Medical History Past Medical History: Hyperlipidemia, Hypertension History of Any Multi-Drug Resistant Organisms: None Reported Past Surgical History: Appendectomy, Hysterectomy Past Psychological History: No Psychological Hx Reported Smoking Status: Never smoker Past Alcohol Use History: None Reported Past Drug Use History: None Reported General Exam - General Exam Comments Initial Comments: General: The patient is awake and alert, in no distress, and does not appear acutely ill. Eye: Pupils are equal, round and reactive to light, extra-ocular movements are intact. No nystagmus. There is normal conjunctiva bilaterally. No signs of icterus. Ears, nose, mouth and throat: There are moist mucous membranes and no oral lesions. Neck: The neck is supple, there is no tenderness or JVD. Cardiovascular: There is a regular rate and rhythm. No murmur, rub or gallop is appreciated. Respiratory: Lungs are clear to auscultation, respirations are non-labored, breath sounds are equal. No wheezes, stridor, rales, or rhonchi. Musculoskeletal: Patient shows limited range of motion of the cervical spine due to pain. Worse with rotation to the right than the left. No bony tenderness to the cervical thoracic or lumbar spine. No step-off deformity. Strength 5/5 in both upper and lower extremities. Sensation intact. Pulses equal bilaterally 2+. Neurological: A&O x 3. CN II-XII intact, There are no obvious motor or sensory deficits. Coordination appears grossly intact. Speech is normal. Skin: Skin is warm and dry and no rashes or lesions are noted. Psychiatric: Cooperative, appropriate mood & affect, normal judgment. Limitations: no limitations Course Vital Signs 10/27/17 10/27/17 09:00 10:39 Temperature 98.0 F Pulse Rate 102 H 82 Respiratory 20 16 Rate Blood Pressure 175/77 104/59 O2 Sat by Pulse 100 96 Oximetry Medical Decision Making - Medical Decision Making Patient reexamined at this time shows no signs of distress is resting comfortably. Doesn't that to improvement after by mouth Valium 5 mg and and Piercy 5/325. Patient's CT of her head and neck reviewed showing no acute abnormalities. Results were discussed with the patient. Patient doing well at this time. Vitals are stable. She states she's feeling better. Patient will be discharged home with a muscle relaxer. She is advised that they may make her drowsy. Advised to follow-up the family physician over the next 2 days. Advised return if symptoms increase worsen. Disposition Clinical Impression: Cervical muscle strain Disposition: HOME SELF-CARE Condition: Good Instructions: Cervical Strain (ED) Additional Instructions: Please use medication as discussed. Please be aware that muscle relaxant may make you drowsy. Please follow-up with family doctor in the next 2 days of symptoms have not improved. Please return to emergency room if the symptoms increase or worsen or for any other concerns. Prescriptions: Cyclobenzaprine [Flexeril] 1 - 2 tab PO TID #20 tablet Referrals: Cody Jackson MD [Primary Care Provider] - 1-2 days Time of Disposition: 10:42
--- NOTE | 2017-10-27 09:55 | CT ---
EXAMINATION TYPE: CT brain kiran wo con DATE OF EXAM: 10/27/2017 COMPARISON: Previous CT scan of the brain dated 10/25/2016. HISTORY: Neck pain. CT DLP: 1307.10 mGycm Automated exposure control for dose reduction was used. TECHNIQUE: CT scan of the head and cervical spine are performed without contrast. FINDINGS: BRAIN: There are generalized changes of sulcal prominence and ventriculomegaly, compatible with atrop hic change. There is diffuse periventricular white matter lucency, compatible with chronic white jazmyne er ischemic change. There is no acute focal lesion, mass effect or midline shift identified. I do not see evidence of intracranial blood. There is chronic mucoperiosteal thickening involving both maxillary sinuses. There is underaeration o f the right mastoid air cells in keeping with chronic mastoiditis. The bony calvarium is intact. IMPRESSION: 1. NO ACUTE INTRACRANIAL ABNORMALITY. 2. DEGENERATIVE CHANGE. 3. MILD, CHRONIC BILATERAL MAXILLARY SINUS DISEASE. 4. 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 CERVICAL SPINE: There are emphysematous changes throughout the visualized portions of the lungs. Prevertebral soft tissues are normal. There is a grade 1 spondylolisthesis of C3 on C4 and C6 on C7. Alignment is otherwise maintained. Janki antoaxial relationships are normal. There is degenerative disc disease and hypertrophic spondylosis p resent at C5-6 and C6-7. There is uncovertebral joint disease present at these levels. There is left- sided facet hypertrophy at C2-3 and to lesser extent C3-4 no fracture is seen. IMPRESSION: 1. NO ACUTE OSSEOUS LESION. 2. DEGENERATIVE CHANGE. 3. EMPHYSEMATOUS CHANGE.
[2017-10-27 10:40] VITALS: BP 104/59; PULSE 82; RESP 16
== END 2017-10-27 10:50 | disposition home or self-care (01) ==
LOC: EC 08:58
DX: S16.1XXA Strain of muscle, fascia and tendon at neck level, initial encounter (principal); R51 Headache; E78.5 Hyperlipidemia, unspecified; I10 Essential (primary) hypertension; Z79.82 Long term (current) use of aspirin; Z79.899 Other long term (current) drug therapy; Z88.0 Allergy status to penicillin; X58.XXXA Exposure to other specified factors, initial encounter
CPT/HCPCS: 70450; 72125; 99283

== ENCOUNTER → 2017-12-03 | Outpatient (CLI) | payer MEDICARE, BC ==
--- NOTE | 2017-12-03 15:20 | XR ---
EXAMINATION TYPE: XR shoulder complete RT DATE OF EXAM: 12/03/2017 CLINICAL HISTORY: Right shoulder pain with no known injury. TECHNIQUE: Three views of the right shoulder are obtained. COMPARISON: None. FINDINGS: There is no acute fracture/dislocation evident in the right shoulder. There is moderate gl enohumeral arthropathy with subchondral cysts and joint space narrowing. There is also generalized os seous demineralization. Mild acromio clavicular arthropathy is seen as small osteophytes. There is ca lcification of the distal insertional fibers of the rotator cuff. The humeral head is high [place] oumar picious for sequela of chronic rotator cuff injury. The visualized ribs are intact and unremarkable. IMPRESSION: 1. No acute fracture or dislocation in the right shoulder. 2. Moderate glenohumeral arthropathy and mild acromioclavicular arthropathy with calcific tendinosis of the rotator cuff and findings suspicious for chronic rotator cuff tear. 3. Generalized osseous demineralization.
== END ==
LOC: RADXRMAIN 13:40
PROVIDERS: ATTEND Internal Medicine Geriatric Medicine
DX: M19.011 Primary osteoarthritis, right shoulder (principal); M67.813 Other specified disorders of tendon, right shoulder; M81.8 Other osteoporosis without current pathological fracture

== ENCOUNTER → 2018-02-05 | Outpatient (CLI) | payer MEDICARE, BC ==
--- NOTE | 2018-02-07 10:32 | MM ---
Reason for exam: screening (asymptomatic). Last mammogram was performed 1 year and 1 month ago. History: Patient is postmenopausal and had first child at age 34. Physical Findings: A clinical breast exam by your physician is recommended on an annual basis and results should be correlated with mammographic findings. MG 3D Screening Mammo W/Cad Bilateral CC and MLO view(s) were taken. Prior study comparison: January 18, 2017, bilateral MG 3d screening mammo w/cad. January 18, 2016, bilateral MG 3d screening mammo w/cad. The breast tissue is heterogeneously dense. This may lower the sensitivity of mammography. No significant changes when compared with prior studies. ASSESSMENT: Negative, BI-RAD 1 RECOMMENDATION: Routine screening mammogram of both breasts in 1 year.
== END | disposition home or self-care (01) ==
LOC: RADMAMWWP 09:09
PROVIDERS: ATTEND Internal Medicine Geriatric Medicine
DX: Z12.31 Encounter for screening mammogram for malignant neoplasm of breast (principal)
CPT/HCPCS: 77063; 77067

== ENCOUNTER 2019-02-04 08:37 | Inpatient (IN) | payer MEDICARE, BC ==
--- NOTE | 2019-02-04 08:51 | ED ---
General Adult HPI - General Stated complaint: near syncope Time Seen by Provider: 02/04/19 08:37 Source: RN notes reviewed - History of Present Illness Initial comments: This is an 83-year-old female who presents emergency department stating over the last 3 days she hasn't felt well she's been nauseated but has not vomited. Pat ient states she has had multiple episodes where she thinks she's going to passout but has not passed out. Patient states she was nauseated when this occurred and very diaphoretic. Patient also states she has increased frequency of urination. Patient states she was incontinent this morning because she couldn't make to the bathroom in time. Patient also complains of right knee pain but denies any injury. Patient denies any chest pain difficulty breathing or shortness of breath. Patient denies any fever or chill. Patient states she occasionally has a cough but no sputum production. Patient denies any abdominal pain. Patient denies any chest pain. Patient denies any back pain. Patient denies any recent fall or injury. - Related Data Home Medications Medication Instructions Recorded Confirmed Atorvastatin Calcium [Lipitor] 10 mg PO Q48H 10/25/16 02/04/19 Calcium Carbonate [Calcium] 600 mg PO HS 10/25/16 02/04/19 Cholecalciferol [Vitamin D3] 5,000 unit PO MOWEFR 10/25/16 02/04/19 Metoprolol Succinate [Toprol XL] 25 mg PO DAILY 10/25/16 02/04/19 Olmesartan/Hydrochlorothiazide 0.5 tab PO DAILY 10/25/16 02/04/19 [Benicar Hct 40-12.5 mg Tablet] Acetaminophen Tab [Tylenol Tab] 325 mg PO Q4H PRN 02/04/19 02/04/19 Baclofen [Lioresal] 5 mg PO BID PRN 02/04/19 02/04/19 Allergies Allergy/AdvReac Type Severity Reaction Status Date / Time Penicillins Allergy Unknown Verified 02/04/19 09:42 Childhood Review of Systems ROS Statement: Those systems with pertinent positive or pertinent negative responses have been documented in the HPI. ROS Other: All systems not noted in ROS Statement are negative. Past Medical History Past Medical History: Hyperlipidemia, Hypertension History of Any Multi-Drug Resistant Organisms: None Reported Past Surgical History: Appendectomy, Hysterectomy Past Psychological History: No Psychological Hx Reported Smoking Status: Never smoker Past Alcohol Use History: None Reported Past Drug Use History: None Reported General Exam - General Exam Comments Initial Comments: GENERAL: Patient is well-developed and well-nourished. Patient is nontoxic and well- hydrated and is in mild distress. ENT: Neck is soft and supple. No significant lymphadenopathy is noted. Oropharynx is clear. Moist mucous membranes. Neck has full range of motion without eliciting any pain. EYES: The sclera were anicteric and conjunctiva were pink and moist. Extraocular movements were intact and pupils were equal round and reactive to light. Eyeli ds were unremarkable. PULMONARY: Unlabored respirations. Good breath sounds bilaterally. No audible rales rhonchi or wheezing was noted. CARDIOVASCULAR: There is a regular rate and rhythm without any murmurs gallops or rubs. ABDOMEN: Soft and nontender with normal bowel sounds. No palpable organomegaly was noted. There is no palpable pulsatile mass. SKIN: Skin is clear with no lesions or rashes and otherwise unremarkable. NEUROLOGIC: Patient is alert and oriented x3. Cranial nerves II through XII are grossly intact. Motor and sensory are also intact. Normal speech, volume and content. Symmetrical smile. MUSCULOSKELETAL: Normal extremities with adequate strength and full range of motion. LYMPHATICS: No significant lymphadenopathy is noted PSYCHIATRIC: Normal psychiatric evaluation. Course Vital Signs 02/04/19 02/04/19 02/04/19 08:55 09:36 10:36 Temperature 98.6 F Pulse Rate 78 84 82 Respiratory 18 18 18 Rate Blood Pressure 131/59 125/58 117/62 O2 Sat by Pulse 98 97 100 Oximetry Medical Decision Making - Medical Decision Making EKG shows normal sinus rhythm at 77 bpm IA interval is 126 dresses 76 QT interval 368 QTC is 416. Patient's EKG shows no ST segment elevation or depression or T wave abnormalities are noted. - Lab Data Result diagrams: 02/04/19 09:32 02/04/19 09:32 Lab Results 02/04/19 02/04/19 02/04/19 Range/Units 09:32 09:32 09:32 WBC 8.6 (3.8-10.6) k/uL RBC 4.16 (3.80-5.40) m/uL Hgb 12.0 (11.4-16.0) gm/dL Hct 35.8 (34.0-46.0) % MCV 86.1 (80.0-100.0) fL MCH 28.7 (25.0-35.0) pg MCHC 33.4 (31.0-37.0) g/dL RDW 14.8 (11.5-15.5) % Plt Count 232 (150-450) k/uL Neutrophils % 81 % Lymphocytes % 12 % Monocytes % 6 % Eosinophils % 0 % Basophils % 0 % Neutrophils # 7.0 (1.3-7.7) k/uL Lymphocytes # 1.0 (1.0-4.8) k/uL Monocytes # 0.5 (0-1.0) k/uL Eosinophils # 0.0 (0-0.7) k/uL Basophils # 0.0 (0-0.2) k/uL PT (9.0-12.0) sec INR (<1.2) APTT (22.0-30.0) sec Sodium 137 (137-145) mmol/L Potassium 4.2 (3.5-5.1) mmol/L Chloride 103 (98-107) mmol/L Carbon Dioxide 24 (22-30) mmol/L Anion Gap 10 mmol/L BUN 20 H (7-17) mg/dL Creatinine 0.75 (0.52-1.04) mg/dL Est GFR (CKD-EPI)AfAm 85 (>60 ml/min/1.73 sqM) Est GFR (CKD-EPI)NonAf 74 (>60 ml/min/1.73 sqM) Glucose 102 H (74-99) mg/dL Plasma Lactic Acid [place] 1.0 (0.7-2.0) mmol/L Calcium 9.3 (8.4-10.2) mg/dL Total Bilirubin 0.6 (0.2-1.3) mg/dL AST 18 (14-36) U/L ALT 12 (9-52) U/L Alkaline Phosphatase 74 (38-126) U/L Total Protein 6.8 (6.3-8.2) g/dL Albumin 3.9 (3.5-5.0) g/dL Urine Color Urine Appearance (Clear) Urine pH (5.0-8.0) Ur Specific [place] (1.001-1.035) Urine Protein (Negative) Urine Glucose (UA) (Negative) Urine Ketones (Negative) Urine Blood (Negative) Urine Nitrite (Negative) Urine Bilirubin (Negative) Urine Urobilinogen (<2.0) mg/dL Ur Leukocyte Esterase (Negative) Urine RBC (0-5) /hpf Urine WBC (0-5) /hpf Ur Squamous Epith Cells (0-4) /hpf Hyaline Casts (0-2) /lpf Urine Mucus (None) /hpf 02/04/19 02/04/19 Range/Units 09:32 09:32 WBC (3.8-10.6) k/uL RBC (3.80-5.40) m/uL Hgb (11.4-16.0) gm/dL Hct (34.0-46.0) % MCV (80.0-100.0) fL MCH (25.0-35.0) pg MCHC (31.0-37.0) g/dL RDW (11.5-15.5) % Plt Count (150-450) k/uL Neutrophils % % Lymphocytes % % Monocytes % % Eosinophils % % Basophils % % Neutrophils # (1.3-7.7) k/uL Lymphocytes # (1.0-4.8) k/uL Monocytes # (0-1.0) k/uL Eosinophils # (0-0.7) k/uL Basophils # (0-0.2) k/uL PT 9.9 (9.0-12.0) sec INR 0.9 (<1.2) APTT 22.0 (22.0-30.0) sec Sodium (137-145) mmol/L Potassium (3.5-5.1) mmol/L Chloride (98-107) mmol/L Carbon Dioxide (22-30) mmol/L Anion Gap mmol/L BUN (7-17) mg/dL Creatinine (0.52-1.04) mg/dL Est GFR (CKD-EPI)AfAm (>60 ml/min/1.73 sqM) Est GFR (CKD-EPI)NonAf (>60 ml/min/1.73 sqM) Glucose (74-99) mg/dL Plasma Lactic Acid [place] (0.7-2.0) mmol/L Calcium (8.4-10.2) mg/dL Total Bilirubin (0.2-1.3) mg/dL AST (14-36) U/L ALT (9-52) U/L Alkaline Phosphatase (38-126) U/L Total Protein (6.3-8.2) g/dL Albumin (3.5-5.0) g/dL Urine Color Yellow Urine Appearance Clear (Clear) Urine pH 6.5 (5.0-8.0) Ur Specific [place] 1.013 (1.001-1.035) Urine Protein Negative (Negative) Urine Glucose (UA) Negative (Negative) Urine Ketones Negative (Negative) Urine Blood Small H (Negative) Urine Nitrite Negative (Negative) Urine Bilirubin Negative (Negative) Urine Urobilinogen <2.0 (<2.0) mg/dL Ur Leukocyte Esterase Negative (Negative) Urine RBC 2 (0-5) /hpf Urine WBC <1 (0-5) /hpf Ur Squamous Epith Cells <1 (0-4) /hpf Hyaline Casts 3 H (0-2) /lpf Urine Mucus Occasional H (None) /hpf Disposition Clinical Impression: Near syncope, Knee effusion Disposition: ADMITTED IP TO THIS HOSP Is patient prescribed a controlled substance at d/c from ED?: No Referrals: Cody Jackson MD [Primary Care Provider] - 1-2 days Time of Disposition: 11:57
[2019-02-04] MEDS: SODIUM CHLORIDE 0.9% 500 ML 500 ML IV SCH (09:29)
[2019-02-04 10:06] LABS: Appearance,Urine Clear (Clear); Bilirubin,Urine Negative (Negative); Blood,Urine Small (Negative); Color,Urine Yellow; Glucose,Urine (UA) Negative (Negative); Hyaline Casts,Urine 3 /lpf (0-2); Ketones,Urine Negative (Negative); Leukocyte Esterase,Urine Negative (Negative); Mucus,Urine Occasional /hpf; Nitrite,Urine Negative (Negative); PH, Urine 6.5 (5.0-8.0); Protein,Urine Negative (Negative); RBC,Urine 2 /hpf (0-5); Specific Gravity,Urine 1.013 (1.001-1.035); Squamous Epithelial Cell,Urine <1 /hpf (0-4); Urobilinogen,Urine <2.0 mg/dL (<2.0); WBC,Urine <1 /hpf (0-5)
[2019-02-04 10:16] LABS: Albumin 3.9 g/dL (3.5-5.0); Calcium 9.3 mg/dL (8.4-10.2); Potassium 4.2 mmol/L (3.5-5.1); Total Bilirubin 0.6 mg/dL (0.2-1.3); Total Protein 6.8 g/dL (6.3-8.2)
[2019-02-04 10:19] LABS: INR 0.9 (<1.2); Prothrombin Time 9.9 sec (9.0-12.0)
[2019-02-04 10:25] LABS: Basophils % (A) 0 %; Eosinophils % (A) 0 %; HCT 35.8 % (34.0-46.0); Lymphocytes % (A) 12 %; MCH 28.7 pg (25.0-35.0); MCHC 33.4 g/dL (31.0-37.0); MCV 86.1 fL (80.0-100.0); Mean Platelet Volume 7.7; Monocytes # (A) 0.5 k/uL (0-1.0); Monocytes % (A) 6 %; Neutrophils % (A) 81 %; Platelet Count 232 k/uL (150-450); RBC 4.16 m/uL (3.80-5.40); RDW 14.8 % (11.5-15.5); WBC 8.6 k/uL (3.8-10.6)
--- NOTE | 2019-02-04 10:29 | XR ---
EXAMINATION TYPE: XR chest 2V DATE OF EXAM: 02/04/2019 COMPARISON: 02/07/2017 INDICATION: Fever TECHNIQUE: Frontal and lateral views of the chest are obtained. FINDINGS: The heart size is normal. The pulmonary vasculature is normal. The lungs are clear. IMPRESSION: 1. No acute pulmonary process.
--- NOTE | 2019-02-04 10:36 | XR ---
EXAMINATION TYPE: XR knee complete RT DATE OF EXAM: 02/04/2019 COMPARISON: None HISTORY: Pain arthritic knee TECHNIQUE: 3 view right knee FINDINGS: Medial and lateral meniscal calcification is present. Lateral tibial plateau spurring is no june. Joint spaces are preserved. Moderately large joint effusion is present. IMPRESSION: 1. No acute osseous abnormality. 2. Moderately large joint effusion.
[2019-02-04] MEDS ORDERED: NITROGLYCERIN SL TABS 0.4 MG TAB SUBLINGUAL PRN (11:58)
--- NOTE | 2019-02-04 12:12 | CT ---
EXAMINATION TYPE: CT brain wo con DATE OF EXAM: 02/04/2019 COMPARISON: October 27, 2017 HISTORY: Near syncope CT DLP: 1152.[address] of the brain was performed. The ventricles, basal cisterns and sulci overlying the cerebral convexities demonstrate mild enlargem ent. There is no evidence for intracranial hemorrhage or sulcal effacement. There is decreased attenuation about the periventricular white matter and deep white matter of both c erebral hemispheres, compatible with chronic small vessel ischemia. Differential diagnosis does inclu de demyelination. No mass effects are seen.No midline shift. Osseous calvarium is intact. If symptoms persist consider MRI. IMPRESSION: 1. Age related atrophic and chronic small vessel ischemic change without acute intracranial process s een at this time.
[2019-02-04] MEDS ORDERED: BACLOFEN 10 MG TAB PO PRN (12:30)
--- NOTE | 2019-02-04 13:14 | P.HPIM ---
History of Present Illness H&P Date: 02/04/19 Chief Complaint: Presyncope, possible orthostatic hypotension, severe right knee pain, hyper 83-year-old female one of my office patient with past medical history of hypertension hyperlipidemia recurrent bronchitis with bronchial asthma who has generalized arthritis and arthralgias well with multiple injection in the shoulder area with developed to have worsening right knee pain for the last a few weeks become much worse patient had at least a 3 syncopal episode without complete loss of consciousness with any of them today was the worst [place] to her has been having polyuria with no 2 urea on and off and she went down twice through the night and one more time early in the morning before finally decided to come to [facility] according to her description she had severe lightheadedness and dizziness and her knee almost give out on her one time she didn't remember what happened exactly but doesn't remember passing out completely her workup in [facility] from shows no sign of infection originally UA chest x-ray came back negative with normal white blood cell patient blood pressure fluctuates lightheaded she had heart knee with possible of gouty arthr itis versus infection will consult orthopedic the patient be admitted workup for ROM syncope will be done we'll keep patient on reexaminer or echo and carotid along with cardiology consultation will be done in the meanwhile further workup on the right knee will be done as well. Review of Systems CONSTITUTIONAL: Well-developed no acute respiratory distress. EYES: No icterus sclerae, no conjunctivitis. EARS, NOSE, MOUTH, THROAT, and FACE: No sore throat, lymphadenopathy, carotid bruits or deformity. RESPIRATORY: No SOB cough or wheezes. CARDIOVASCULAR: No CP, Palpitation, PND, Orthopnea, or angina. GASTROINTESTINAL: No Abd pain, Nausea or vomiting, no Diarrhea or constipation, No GI Bleed, no distention or masses. GENITOURINARY: Negative for Hematuria or UTI, no kidney stones. Positive polyuria and no dysuria INTEGUMENT/BREAST: Negative for any muscular injury with mild osteoarthritis. Positive right knee pain and discomfort with mild restriction to motion in the right shoulder. HEMATOLOGIC/LYMPHATIC: Negative for bleed or purpura. MUSCULOSKELTAL: Negative for Myalgia or arthralgia. NEURLOGICAL: No LOC, Sz or syncope, blurred vision dizziness or abnormality. Positive presyncope with? Of syncope at least one time. BEHAVIORAL/PSYCH: Negative. ENDOCRINE: Negative. Past Medical History Past Medical History: Hyperlipidemia, Hypertension, Pneumonia, Syncope Additional Past Medical History / Comment(s): Arrhythmia, bronchitis, sinus problems, generalized arthritis, constipation. History of Any Multi-Drug Resistant Organisms: None Reported Past Surgical History: Section, Cholecystectomy, Hysterectomy, Orthopedic Surgery Additional Past Surgical History / Comment(s): Stapendectomy with metal wire, R anlke ORIF, colonoscopy Past Anesthesia/Blood Transfusion Reactions: Postoperative Nausea & Vomiting (PONV) Smoking Status: Never smoker - Past Family History Father Family Medical History: Myocardial Infarction (NH) Additional Family Medical History / Comment(s): Father of a NH at the age of 58 yrs. Mother Family Medical History: Hypertension, Osteoarthritis (OA) Additional Family Medical History / Comment(s): Mother had severe arthritis. Medications and Allergies Home Medications Medication Instructions Recorded Confirmed Type Atorvastatin Calcium [Lipitor] 10 mg PO Q48H 10/25/16 02/04/19 History Calcium Carbonate [Calcium] 600 mg PO HS 10/25/16 02/04/19 History Cholecalciferol [Vitamin D3] 5,000 unit PO MOWEFR 10/25/16 02/04/19 History Metoprolol Succinate [Toprol XL] 25 mg PO DAILY 10/25/16 02/04/19 History Olmesartan/Hydrochlorothiazide 0.5 tab PO DAILY 10/25/16 02/04/19 History [Benicar Hct 40-12.5 mg Tablet] Acetaminophen Tab [Tylenol Tab] 325 mg PO Q4H PRN 02/04/19 02/04/19 History Baclofen [Lioresal] 5 mg PO BID PRN 02/04/19 02/04/19 History Allergies Allergy/AdvReac Type Severity Reaction Status Date / Time Penicillins Allergy Unknown Verified 02/04/19 09:42 Childhood Physical Exam Vitals: Vital Signs Temp Pulse Resp BP Pulse Ox 02/04/19 10:36 82 18 117/62 100 02/04/19 09:36 84 18 125/58 97 02/04/19 08:55 98.6 F 78 18 131/59 98 Intake and Output 02/03/19 02/04/19 02/04/19 22:59 06:59 14:59 Other: Weight 68.039 kg General Appearance: Alert, cooperative, no distress, appears stated age. Neck HEENT: Supple, no lymphadenopathy, no thyroid enlargement, no carotid bruits. Lungs: Clear to auscultation without crackles or wheezes no rhonchi, no deformity. Chest Wall: Chest wall normal expansion with deep inspiration no tenderness and no deformity was found on exam, no costochondral pain or discomfort. Heart: Regular rate and rhythm, S1, S2 normal, no murmur, rub or gallop. Back: Symmetric, positive mild scoliosis and mild discomfort on the right side not in the midline. Abdomen: Soft, non-tender, bowel sounds active all four quadrants, no masses, no organomegaly. Extremities: No edema, positive varicose vein worse on the right side and the left side, positive warm knee and the right side with significant restriction to motion with mild effusion compared to the left side, also patient had mild limitation with both shoulder worse in the right than the left side. Pulses: 2+ and symmetric. Skin: Skin color, texture, tugor normal, no rashes or lesions. Neurologic: Alert oriented x3 cranial nerves II through XII intact, no motor deficit, no abnormal balance or gait. Results CBC & Chem 7: 02/04/19 09:32 02/04/19 09:32 Labs: Abnormal Lab Results - Last 24 Hours (Table) 02/04/19 02/04/19 Range/Units 09:32 09:32 BUN 20 H (7-17) mg/dL Glucose 102 H (74-99) mg/dL Urine Blood Small H (Negative) Hyaline Casts 3 H (0-2) /lpf Urine Mucus Occasional H (None) /hpf Thrombosis Risk Factor Assmnt - DVT/VTE Prophylaxis DVT/VTE Prophylaxis: Pharmacologic Prophylaxis ordered, Mechanical Prophylaxis ordered - Choose All That Apply Any of the Below Risk Factors Present?: Yes Other Risk Factors: Yes Each Risk Factor Represents 3 Points: Age 75 years or older Other congenital or acquired thrombophilia - If yes, enter type in comment: No Thrombosis Risk Factor Assessment Total Risk Factor Score: 3 Thrombosis Risk Factor Assessment Level: Moderate Risk Assessment and Plan Plan: 1 syncope: Not a clear etiology despite, will try to exclude any cardio vascular component, patient will be hospitalized, continue reexaminer, continue carotid and echo for now we'll consult cardiology we watch patient for any significant orthostatic hypotension as well. 2 severe right knee pain: Patient might have gouty arthritis versus inflammatory arthritis, uric acid was order along with CBC and sed rate will consult orthopedic patient might need arthrocentesis along with injection if the fluid is a clear and with the current x-ray with see the severity of the arthritis in the right knee if worsening symptom might require an MRI of the knee eventually. 3 polyuria and Nocturia area: With no sign of UTI at this point if patient is symptomatic can benefit from being on Gr Buttrick 25 mg a day. 4 hypertension: Has been on metoprolol succinate 25 mg a day along with Benicar HCT 40/12.5 mg half tablet daily. 5 hyperlipidemia: Remain on Lipitor 10 mg every 2 days. 6 chronic lower back pain with mild scoliosis: Has been on baclofen and mild anti-inflammatory agent can benefit from Celebrex to meloxicam daily for 2 w eeks. 7 DVT prophylaxis: Will have patient on Venodyne boots and knee-high NATY hose and subcutaneous heparin. 8 GI prophylaxis: Start patient on Pepcid 20 mg daily. CODE STATUS: Full code. Admit patient to observation status for 1-2 nights.
[2019-02-04] MEDS: FAMOTIDINE 20 MG TAB PO SCH (14:35)
--- NOTE | 2019-02-04 15:11 | US ---
EXAMINATION TYPE: US carotid duplex BILAT DATE OF EXAM: 02/04/2019 COMPARISON: NONE CLINICAL HISTORY: Pain. Patient states passing out today. HTN controlled with meds. No hx of TIA. EXAM MEASUREMENTS: RIGHT: Peak Systolic Velocity (PSV) cm/sec ----- Right CCA: 80.9 ----- Right ICA: 72.9 ----- Right ECA: 68.6 ICA/CCA ratio: 0.9 RIGHT: End Diastole cm/sec ----- Right CCA: 11.7 ----- Right ICA: 20.6 ----- Right ECA: 0.0 LEFT: Peak Systolic Velocity (PSV) cm/sec ----- Left CCA: 63.3 ----- Left ICA: 83.4 ----- Left ECA: 75.7 ICA/CCA ratio: 1.3 LEFT: End Diastole cm/sec ----- Left CCA: 11.9 ----- Left ICA: 23.0 ----- Left ECA: 0.0 VERTEBRALS (direction of flow): Right Vertebral: Antegrade Left Vertebral: Antegrade Rhythm: Arrhythmia No elevated velocities or significant stenosis. Bilateral wall thickening. Plaque seen in left bulb. IMPRESSION: 1. Atheromatous plaquing without significant flow-limiting stenosis. Criteria for Assigning % of Stenosis / Diameter reduction (Estimation based on the indirect measurements of the internal carotid artery velocities (ICA PSV). 1. Normal (no stenosis)=ICA PSV < 125 cm/s: ratio < 2.0: ICA EDV<40 cm/s. 2. Less than 50% stenosis=ICA PSV < 125 cm/s: ratio < 2.0: ICA EDV<40 cm/s. 3. 50 to 69% stenosis=ICA PSV of 125 to 230 cm/s: ration 2.0 ? 4.0: ICA EDV 40-100 cm/s. 4. Greater than 70% stenosis to near occlusion= ICA PSV > 230 cm/s: ratio > 4.0: ICA EDV > 100 cm/s. 5. Near occlusion= ICA PSV velocities may be low or undetectable: variable ratio and ICA EDV. 6. Total occlusion=unable to detect flow.
[2019-02-04] MEDS: ACETAMINOPHEN TAB 325 MG TAB PO PRN ×2 (16:33→21:23)
[2019-02-04 17:19] LABS: Glucose,Whole Blood 95 mg/dL (75-99)
[2019-02-04] MEDS: HEPARIN SODIUM,PORCINE 5,000 UNIT/ML 1 ML VIAL SQ SCH (21:22)
[2019-02-05] MEDS: ACETAMINOPHEN TAB 325 MG TAB PO PRN ×2 (05:17→09:05)
[2019-02-05 05:24] LABS: Cholesterol 179 mg/dL (<200); HDL Cholesterol 96 mg/dL (40-60); LDL Cholesterol,Calculated 65 mg/dL (0-99); Triglycerides 88 mg/dL (<150)
[2019-02-05] MEDS ORDERED: HYDROCHLOROTHIAZIDE 12.5 MG CAP PO SCH (09:00)
[2019-02-05] MEDS: FAMOTIDINE 20 MG TAB PO SCH (09:05)
[2019-02-05] MEDS: ATORVASTATIN 10 MG TAB PO SCH (09:05)
[2019-02-05] MEDS: HEPARIN SODIUM,PORCINE 5,000 UNIT/ML 1 ML VIAL SQ SCH ×3 (09:05→21:39)
[2019-02-05] MEDS: METOPROLOL SUCCINATE (ER) 25 MG TAB.ER.24H PO SCH (09:05)
[2019-02-05] MEDS: ASPIRIN 325 MG TAB PO SCH (09:05)
[2019-02-05] MEDS: LOSARTAN 50 MG TAB PO SCH (09:05)
[2019-02-05] MEDS: OXYBUTYNIN XL 5 MG TAB.ER.24 PO SCH (09:06)
[2019-02-05] MEDS ORDERED: methylPREDNISolone ACETATE 40 MG/ML 1 ML VIAL INTRAARTIC STA (09:19)
[2019-02-05] MEDS ORDERED: LIDOCAINE 2% (PF) 20 MG/ML 2 ML AMP INTRAARTIC STA (09:19)
[2019-02-05] MEDS: HYDROCHLOROTHIAZIDE 25 MG TAB PO SCH (09:58)
[2019-02-05] MEDS ORDERED: LIDOCAINE 2% INJ 20 MG/ML (20 ML MDV) INTRATRACH STA (10:12)
--- NOTE | 2019-02-05 10:31 | P.CRDCN ---
History of Present Illness History of present illness: This is a pleasant 83-year-old female past medical history significant for hypertension and dyslipidemia. She denies history of coronary artery disease and does not follow with a compatibility test engineer for any reason. We have been asked to see her in consultation for near syncopal spell. She states yesterday morning after waking up she sat at the edge of the bed for a few minutes before standing up. As she was started walking to the bathroom she started feeling light headed and everything in went black. She was able to brace herself and did not fall. She did not lose consciousness. She felt acutely nauseated and diaphoretic at the time. She was able to lower herself down and EMS was called. The episode lasted less then 2 minutes and resolved on its own. No further symptoms since a rriving at the hospital. She denies chest pain, shortness of breath or palpitations. EKG reveals sinus mechanism with no acute ST or T wave abnormalities noted. Chest x-ray is negative for acute cardiopulmonary process. CT of the brain is negative for acute intracranial process. Bilateral carotid Doppler negative for flow limiting stenosis. Laboratory data reviewed, WBC 8.6, hemoglobin 12, platelets 232, sodium 137, potassium 4.2, creatinine 0.75, cardiac enzymes negative 2, LDL 65. Current cardiac medications include atorvastatin 10 mg every other day, Toprol 25 mg daily and almost certain/HCTZ 40/12.5 mg daily. At the time of my exam: CONSTITUTIONAL: Denies fever. Denies chills. EYES: Denies blurred vision. Denies vision changes. Denies eye pain. EARS, NOSE, MOUTH & THROAT: Denies headache. Denies sore throat. Denies ear pain. CARDIOVASCULAR: Denies chest pain. Denies shortness of breath. Denies orthopnea. Denies PND. Denies palpitations. RESPIRATORY: Denies cough. GASTROINTESTINAL: Denies abdominal pain. Denies diarrhea. Denies constipation. Denies nausea. Denies vomiting. MUSCULOSKELETAL: Denies myalgias. INTEGUMENTARY: Denies pruitis. Denies rash. NEUROLOGIC: Denies numbness. Denies tingling. Denies weakness. PSYCHIATRIC: Denies anxiety. Denies depression. ENDOCRINE: Denies fatigue. Denies weight change. Denies polydipsia. Denies polyurina. GENITOURINARY: Denies burning, hematuria or urgency with micturation. HEMATOLOGIC: Denies history of anemia. Denies bleeding. Blood pressure 113/69 heart rate 88 afebrile maintaining oxygen saturation on room air GENERAL: This is a 83-year-old female in no apparent distress at the time of my examination. HEENT: Head is atraumatic, normocephalic. Pupils are equal, round. Sclerae anicteric. Conjunctivae are clear. Mucous membranes of the mouth are moist. Neck is supple. There is no jugular venous distention. No carotid bruit is heard. LUNGS: Clear to auscultation no wheezes, rales or rhonchi. No chest wall ten derness is noted on palpation or with deep breathing. HEART: Regular rate and rhythm without murmurs, rubs or gallops. S1 and S2 heard. ABDOMEN: Soft, nontender. Bowel sounds are heard. No organomegaly noted. EXTREMITIES: No evidence of peripheral edema and no calf tenderness noted. VASCULAR: Radial and dorsalis pedis pulses palpated, no evidence of clubbing. NEUROLOGIC: Patient is awake, alert and oriented x3. ASSESSMENT Near syncope, suggestive of orthostatic changes Hypertension Dyslipidemia PLAN Echocardiogram has been obtained and will be reviewed. Check for orthostatic changes. Check d-dimer. No evidence on telemetry for sandro-arrhythmia. Thank you kindly for this consultation. Nurse Practitioner note has been reviewed, I agree with a documented findings and plan of care. Patient was seen and examined. Past Medical History Past Medical History: Hyperlipidemia, Hypertension, Pneumonia, Syncope Additional Past Medical History / Comment(s): Arrhythmia, bronchitis, sinus problems, generalized arthritis, constipation. History of Any Multi-Drug Resistant Organisms: None Reported Past Surgical History: Section, Cholecystectomy, Hysterectomy, Orth opedic Surgery Additional Past Surgical History / Comment(s): Stapendectomy with metal wire, R anlke ORIF, colonoscopy Past Anesthesia/Blood Transfusion Reactions: Postoperative Nausea & Vomiting (PONV) Smoking Status: Never smoker - Past Family History Father Family Medical History: Myocardial Infarction (ID) Additional Family Medical History / Comment(s): Father of a ID at the age of 58 yrs. Mother Family Medical History: Hypertension, Osteoarthritis (OA) Additional Family Medical History / Comment(s): Mother had severe arthritis. Medications and Allergies Home Medications Medication Instructions Recorded Confirmed Type Atorvastatin Calcium [Lipitor] 10 mg PO Q48H 10/25/16 02/04/19 History Calcium Carbonate [Calcium] 600 mg PO HS 10/25/16 02/04/19 History Cholecalciferol [Vitamin D3] 5,000 unit PO MOWEFR 10/25/16 02/04/19 History Metoprolol Succinate [Toprol XL] 25 mg PO DAILY 10/25/16 02/04/19 History Olmesartan/Hydrochlorothiazide 0.5 tab PO DAILY 10/25/16 02/04/19 History [Benicar Hct 40-12.5 mg Tablet] Acetaminophen Tab [Tylenol Tab] 325 mg PO Q4H PRN 02/04/19 02/04/19 History Baclofen [Lioresal] 5 mg PO BID PRN 02/04/19 02/04/19 History Allergies Allergy/AdvReac Type Severity Reaction Status Date / Time Penicillins Allergy Unknown Verified 02/04/19 09:42 Childhood Physical Exam Vitals: Vital Signs Temp Pulse Pulse Resp BP BP Pulse Ox 02/05/19 04:44 98.3 F 80 16 113/69 99 02/05/19 00:00 78 18 02/04/19 20:12 98.0 F 78 18 111/66 96 02/04/19 16:00 74 18 02/04/19 15:24 97 F L 74 18 114/55 99 02/04/19 13:42 75 18 02/04/19 12:30 82 122/59 98 02/04/19 12:00 111/57 02/04/19 11:30 76 119/60 97 02/04/19 11:00 73 117/62 100 02/04/19 10:36 82 18 117/62 100 02/04/19 10:30 77 125/59 98 Intake and Output 02/04/19 02/05/19 02/05/19 22:59 06:59 14:59 Intake Total 120 240 Output Total 900 Balance 120 -660 Intake: Oral 120 240 Output: Urine 900 Other: Voiding Method Indwelling Catheter Indwelling Catheter # Voids 0 0 # Bowel Movements 1 1 Results 02/04/19 09:32 02/04/19 09:32 Cardiac Enzymes 02/04/19 02/04/19 Range/Units 09:32 15:27 Troponin I <0.012 <0.012 (0.000-0.034) ng/mL Coagulation 02/04/19 Range/Units 09:32 PT 9.9 (9.0-12.0) sec APTT 22.0 (22.0-30.0) sec Lipids 02/04/19 Range/Units 09:32 Triglycerides 88 (<150) mg/dL Cholesterol 179 (<200) mg/dL HDL Cholesterol 96 H (40-60) mg/dL CBC 02/04/19 Range/Units 09:32 WBC 8.6 (3.8-10.6) k/uL RBC 4.16 (3.80-5.40) m/uL Hgb 12.0 (11.4-16.0) gm/dL Hct 35.8 (34.0-46.0) % Plt Count 232 (150-450) k/uL Current Medications Generic Name Dose Route Start Last Admin Trade Name Freq PRN Reason Stop Dose Admin Acetaminophen 325 mg 02/04/19 12:30 02/05/19 09:05 Tylenol Tab PO 325 mg Q4H PRN Administration Pain Aspirin 325 mg 02/05/19 09:00 02/05/19 09:05 Aspirin PO 325 mg DAILY BILLY Administration Atorvastatin Calcium 10 mg 02/05/19 09:00 02/05/19 09:05 Lipitor PO 10 mg Q48H BILLY Administration Baclofen 5 mg 02/04/19 12:30 Lioresal PO BID PRN Muscle Spasm Famotidine 20 mg 02/04/19 13:15 02/05/19 09:05 Pepcid PO 20 mg DAILY BILLY Administration Heparin Sodium (Porcine) 5,000 unit 02/04/19 21:00 02/05/19 09:22 Heparin SQ Not Given Q12HR [facility] Hydrochlorothiazide 6.25 mg 02/05/19 09:00 02/05/19 09:58 Hydrodiuril PO 6.25 mg DAILY BILLY Administration Lidocaine HCl 20 mg 02/05/19 10:12 Xylocaine 2% Inj (20mg/Ml) INTRATRACH 02/05/19 10:13 ONCE STA Losartan Potassium 100 mg 02/05/19 09:00 02/05/19 09:05 Cozaar PO 100 mg DAILY BILLY Administration Metoprolol Succinate 25 mg 02/05/19 09:00 02/05/19 09:05 Toprol Xl PO 25 mg DAILY BILLY Administration Nitroglycerin 0.4 mg 02/04/19 11:58 Nitrostat SUBLINGUAL Q5M PRN Chest Pain Oxybutynin Chloride 5 mg 02/05/19 09:00 02/05/19 09:06 Ditropan Xl PO 5 mg DAILY BILLY Administration Intake and Output 02/04/19 02/05/19 02/05/19 22:59 06:59 14:59 Intake Total 120 240 Output Total 900 Balance 120 -660 Intake: Oral 120 240 Output: Urine 900 Other: Voiding Method Indwelling Catheter Indwelling Catheter # Voids 0 0 # Bowel Movements 1 1 02/04/19 09:32 02/04/19 09:32
--- NOTE | 2019-02-05 11:03 | P.HPOR ---
History of Present Illness H&P Date: 02/05/19 Chief Complaint: Right knee pain This is an 83-year-old female with recent history of increased right knee pain. She is having difficulty ambulating secondary to the pain. She states that she noticed significant swelling over the past few days. She has multiple medical comorbidities. She is admitted to [facility] and we are consulted for orthopedic evaluation. Past Medical History Past Medical History: Hyperlipidemia, Hypertension, Pneumonia, Syncope Additional Past Medical History / Comment(s): Arrhythmia, bronchitis, sinus problems, generalized arthritis, constipation. History of Any Multi-Drug Resistant Organisms: None Reported Past Surgical History: Section, Cholecystectomy, Hysterectomy, Orthopedic Surgery Additional Past Surgical History / Comment(s): Stapendectomy with metal wire, R anlke ORIF, colonoscopy Past Anesthesia/Blood Transfusion Reactions: Postoperative Nausea & Vomiting (PONV) Smoking Status: Never smoker - Past Family History Father Family Medical History: Myocardial Infarction (MN) Additional Family Medical History / Comment(s): Father of a MN at the age of 58 yrs. Mother Family Medical History: Hypertension, Osteoarthritis (OA) Additional Family Medical History / Comment(s): Mother had severe arthritis. Medications and Allergies Home Medications Medication Instructions Recorded Confirmed Type Atorvastatin Calcium [Lipitor] 10 mg PO Q48H 10/25/16 02/04/19 History Calcium Carbonate [Calcium] 600 mg PO HS 10/25/16 02/04/19 History Cholecalciferol [Vitamin D3] 5,000 unit PO MOWEFR 10/25/16 02/04/19 History Metoprolol Succinate [Toprol XL] 25 mg PO DAILY 10/25/16 02/04/19 History Olmesartan/Hydrochlorothiazide 0.5 tab PO DAILY 10/25/16 02/04/19 History [Benicar Hct 40-12.5 mg Tablet] Acetaminophen Tab [Tylenol Tab] 325 mg PO Q4H PRN 02/04/19 02/04/19 History Baclofen [Lioresal] 5 mg PO BID PRN 02/04/19 02/04/19 History Allergies Allergy/AdvReac Type Severity Reaction Status Date / Time Penicillins Allergy Unknown Verified 02/04/19 09:42 Childhood Physical Examination This is a pleasant 83-year-old female in no acute distress. She is alert and oriented 3. Exam of the right knee reveals no erythema or ecchymosis. There is a 2-3+ effusion noted. She has pain with palpation. There is pain with any motion of the knee. She is able to flex to about 30. She is able to ambulate with pain. She has full foot and ankle motion without difficulty or pain. Neurovascular status to the lower extremity is intact. Results X-rays of the right knee showed mild to moderate degenerative changes. Large effusion noted on x-ray. No acute fractures noted. - Labs Labs: Abnormal Lab Results - Last 24 Hours (Table) 02/04/19 Range/Units 09:32 HDL Cholesterol 96 H (40-60) mg/dL Microbiology - Last 24 Hours (Table) 02/04/19 09:32 Urine Culture - Preliminary Urine,Catheterized H & H 02/04/19 Range/Units 09:32 Hgb 12.0 (11.4-16.0) gm/dL Hct 35.8 (34.0-46.0) % Coagulation 02/04/19 Range/Units 09:32 INR 0.9 (<1.2) Result Diagrams: 02/04/19 09:32 02/04/19 09:32 Assessment and Plan (1) Degenerative arthritis of right knee Current Visit: Yes Status: Acute Code(s): M17.11 - UNILATERAL PRIMARY OSTEOARTHRITIS, RIGHT KNEE SNOMED Code(s): 466901570997077 (2) Knee effusion Current Visit: Yes Status: Acute Code(s): M25.469 - EFFUSION, UNSPECIFIED KNEE SNOMED Code(s): 159883013 (3) Near syncope Current Visit: Yes Status: Acute Code(s): R55 - SYNCOPE AND COLLAPSE SNOMED Code(s): 666215197 Plan: The clinical and x-ray findings are discussed the patient. The right knee is aspirated using sterile technique. I obtained approximately 40 mL of slightly cloudy yellow fluid. The fluid is sent for cell count and crystal identification. The knee is also injected with 40 mg of Depo-Medrol. We will continue to follow. May ice the knee today if needed.
--- NOTE | 2019-02-05 12:37 | ECHOF ---
Referral Reason:Near syncope MEASUREMENTS -------- HEIGHT: 167.6 cm WEIGHT: 68.0 kg BP: 122/59 RVIDd: 2.9 cm (< 3.3) IVSd: 1.2 cm (0.6 - 1.1) LVIDd: 3.0 cm (3.9 - 5.3) LVPWd: 1.1 cm (0.6 - 1.1) IVSs: 1.4 cm LVIDs: 2.3 cm LVPWs: 1.5 cm LA Diam: 2.9 cm (2.7 - 3.8) LAESV Index (A-L): 21.52 ml/m Ao Diam: 2.6 cm (2.0 - 3.7) AV Cusp: 1.9 cm (1.5 - 2.6) EPSS: 0.6 cm MV E Petros: 0.82 m/s MV DecT: 261 ms MV A Petros: 1.02 m/s MV E/A Ratio: 0.80 RAP: 5.00 mmHg RVSP: 35.61 mmHg MV EF SLOPE: 80.34 mm/s (70 - 150) MV EXCURSION: 1.06 cm (> 18.000) FINDINGS -------- Sinus rhythm. This was a technically good study. The left ventricular size is normal. Left ventricular wall thickness is normal. Overall left vent ricular systolic function is normal with, an EF between 60 - 65 %. The right ventricle is normal in size. Left atrium is normal size by volume. The right atrium is normal in size and function. The aortic valve is trileaflet and appears structurally normal. The mitral valve leaflets are mildly thickened. Mild mitral annular calcification present. Mild tricuspid regurgitation present. There is mild pulmonary hypertension. The right ventricular systolic pressure, as measured by Doppler, is 35.61mmHg. Trace/mild (physiologic) pulmonic regurgitation. The aortic root size is normal. The inferior vena cava was not well visualized. There is no pericardial effusion. CONCLUSIONS -------- 1. Sinus rhythm. 2. This was a technically good study. 3. The left ventricular size is normal. 4. Left ventricular wall thickness is normal. 5. Overall left ventricular systolic function is normal with, an EF between 60 - 65 %. 6. The right ventricle is normal in size. 7. Left atrium is normal size by volume. 8. The right atrium is normal in size and function. 9. The aortic valve is trileaflet and appears structurally normal. 10. The mitral valve leaflets are mildly thickened. 11. Mild mitral annular calcification present. 12. Mild tricuspid regurgitation present. 13. There is mild pulmonary hypertension. 14. The right ventricular systolic pressure, as measured by Doppler, is 35.61mmHg. 15. Trace/mild (physiologic) pulmonic regurgitation. 16. The aortic root size is normal. 17. The inferior vena cava was not well visualized. 18. There is no pericardial effusion. AWNING HANGER: FILIBERTO Conroy
--- NOTE | 2019-02-05 13:58 | P.PN ---
Subjective Progress Note Date: 02/05/19 83-year-old female one of my office patient with past medical history of hypertension hyperlipidemia recurrent bronchitis with bronchial asthma who has generalized arthritis and arthralgias well with multiple injection in the shoulder area with developed to have worsening right knee pain for the last a few weeks become much worse patient had at least a 3 syncopal episode without complete loss of consciousness with any of them today was the worst [place] to her has been having polyuria with no 2 urea on and off and she went down twice through the night and one more time early in the morning before finally decided to come to [facility] according to her description she had severe light headedness and dizziness and her knee almost give out on her one time she didn't remember what happened exactly but doesn't remember passing out completely her workup in [facility] from shows no sign of infection originally UA chest x-ray came back negative with normal white blood cell patient blood pressure fluctuates lightheaded she had heart knee with possible of gouty arthritis versus infection will consult orthopedic the patient be admitted workup for ROM syncope will be done we'll keep patient on registered nurse cardiac telemetry or echo and carotid along with cardiology consultation will be done in the meanwhile further workup on the right knee will be done as well. 02/05: Carotid studies negative for hemodynamically significant stenosis. Urine cultures in progress. Orthopedics is here and aspirating her right knee on clear bright yellow fluid and steroid injection. Chase catheter remains in place which will have removed today. Patient has been up to the bathroom. We anticipate a monitor overnight and discharged home tomorrow. Physical therapy is recommending home with homecare or subacute rehab. Patient has refused home care. Patient has been afebrile, blood pressure 110/65, pulse ox 90% on room air, heart rate 77. D-dimer 0.65. Cardiology is following. Echocardiogram reveals EF of 60-65%, mild tricuspid regurgitation, mild pulmonary hypertension. Objective - Vital Signs Vital signs: Vital Signs Temp 97.7 F 02/05/19 11:58 Pulse 77 02/05/19 11:58 Resp 16 02/05/19 11:58 BP 110/65 02/05/19 11:58 Pulse Ox 98 02/05/19 11:58 Intake & Output 02/04/19 02/05/19 02/05/19 18:59 06:59 18:59 Intake Total 360 Output Total 900 Balance -540 Weight 68.039 kg Intake: Oral 360 Output: Urine 900 Other: Voiding Method Indwelling Catheter Indwelling Catheter Indwelling Catheter # Voids 0 # Bowel Movements 1 1 - Exam Review of Systems CONSTITUTIONAL: Well-developed no acute respiratory distress. EYES: No icterus sclerae, no conjunctivitis. EARS, NOSE, MOUTH, THROAT, and FACE: No sore throat, lymphadenopathy, carotid bruits or deformity. RESPIRATORY: No SOB cough or wheezes. CARDIOVASCULAR: No CP, Palpitation, PND, Orthopnea, or angina. GASTROINTESTINAL: No Abd pain, Nausea or vomiting, no Diarrhea or constipation, No GI Bleed, no distention or masses. GENITOURINARY: Negative for Hematuria or UTI, no kidney stones. Positive polyuria and no dysuria INTEGUMENT/BREAST: Negative for any muscular injury with mild osteoarthritis. Positive right knee pain and discomfort with mild restriction to motion in the right shoulder. HEMATOLOGIC/LYMPHATIC: Negative for bleed or purpura. MUSCULOSKELTAL: Negative for Myalgia or arthralgia. NEURLOGICAL: No LOC, Sz or syncope, blurred vision dizziness or abnormality. Positive presyncope with? Of syncope at least one time. BEHAVIORAL/PSYCH: Negative. General Appearance: Alert, cooperative, no distress, appears stated age, resting in bed. Neck HEENT: Supple, no lymphadenopathy, no thyroid enlargement, no carotid bruits. Lungs: Clear to auscultation without crackles or wheezes no rhonchi, no def ormity. Chest Wall: Chest wall normal expansion with deep inspiration no tenderness and no deformity was found on exam, no costochondral pain or discomfort. Heart: Regular rate and rhythm, S1, S2 normal, no murmur, rub or gallop. Back: Symmetric, positive mild scoliosis and mild discomfort on the right side not in the midline. Abdomen: Soft, non-tender, bowel sounds active all four quadrants, no masses, no organomegaly. Extremities: No edema, positive varicose vein worse on the right side and the left side. Aspiration being performed to the right knee by orthopedics. Pulses: 2+ and symmetric. Skin: Skin color, texture, tugor normal, no rashes or lesions. Neurologic: Alert oriented x3 cranial nerves II through XII intact, no motor deficit, no abnormal balance or gait. - Labs CBC & Chem 7: 02/04/19 09:32 02/04/19 09:32 Labs: Abnormal Lab Results - Last 24 Hours (Table) 02/04/19 02/05/19 Range/Units 09:32 11:35 D-Dimer 0.65 H (<0.60) mg/L FEU HDL Cholesterol 96 H (40-60) mg/dL Microbiology - Last 24 Hours (Table) 02/04/19 09:32 Blood Culture - Preliminary Blood No Growth after 24 hours 02/04/19 09:32 Urine Culture - Preliminary Urine,Catheterized Assessment and Plan Plan: 1 syncope: Not a clear etiology despite, will try to exclude any cardio vascular component, patient will be hospitalized, continue registered nurse cardiac telemetry, carotid and echocardiogram as above. Cardiology consult appreciated. 2 severe right knee pain: Patient might have gouty arthritis versus inflammatory arthritis, uric acid was order along with CBC and sed rate will consult orthopedic patient might need arthrocentesis along with injection if the fluid is a clear and with the current x-ray with see the severity of the arthritis in the right knee if worsening symptom might require an MRI of the knee eventually. 3 polyuria and Nocturia area: With no sign of UTI at this point if patient is symptomatic. Remove Chase catheter. 4 hypertension: Has been on metoprolol succinate 25 mg a day along with Benicar HCT 40/12.5 mg half tablet daily. 5 hyperlipidemia: Remain on Lipitor 10 mg every 2 days. 6 chronic lower back pain with mild scoliosis: Has been on baclofen and mild anti-inflammatory agent can benefit from Celebrex to meloxicam daily for 2 weeks. 7 DVT prophylaxis: Will have patient on Venodyne boots and knee-high NATY hose and subcutaneous heparin. 8 GI prophylaxis: Start patient on Pepcid 20 mg daily. CODE STATUS: Full code. Discharge plan: home tomorrow. Impression and plan of care have been directed as dictated by the signing physician. Smiley Vickers nurse practitioner acting as scribe for signing physician.
[2019-02-05 14:03] LABS: Appearance,BF Cloudy; Color,BF Yellow
[2019-02-05 14:05] LABS: Nucleated Cells, Body Fluid 9250 /uL; RBC, Body Fluid 300 /uL
[2019-02-05 14:26] LABS: Mononuclear WBC,Body Fluid 10 %; Polynuclear WBC,Body Fluid 90 %; Total Cells Counted,Body Fluid 100
[2019-02-05 15:29] VITALS: BMI 24.2
[2019-02-06] MEDS: OXYBUTYNIN XL 5 MG TAB.ER.24 PO SCH (08:47)
[2019-02-06] MEDS: FAMOTIDINE 20 MG TAB PO SCH (08:47)
[2019-02-06] MEDS: LOSARTAN 50 MG TAB PO SCH (08:47)
[2019-02-06] MEDS: METOPROLOL SUCCINATE (ER) 25 MG TAB.ER.24H PO SCH (08:48)
[2019-02-06] MEDS: ASPIRIN 325 MG TAB PO SCH (08:48)
[2019-02-06] MEDS: HEPARIN SODIUM,PORCINE 5,000 UNIT/ML 1 ML VIAL SQ SCH ×2 (08:48→20:10)
[2019-02-06] MEDS: HYDROCHLOROTHIAZIDE 25 MG TAB PO SCH (08:48)
[2019-02-06] MEDS: ACETAMINOPHEN TAB 325 MG TAB PO PRN ×2 (08:49→20:10)
--- NOTE | 2019-02-06 12:03 | P.PN ---
Subjective This is a pleasant 83-year-old female past medical history significant for hypertension and dyslipidemia. She denies history of coronary artery disease and does not follow with a percolator operator for any reason. We have been asked to see her in consultation for near syncopal spell. She states yesterday morning after waking up she sat at the edge of the bed for a few minutes before standing up. As she was started walking to the bathroom she started feeling light headed and everything in went black. She was able to brace herself and did not fall. She did not lose consciousness. She felt acutely nauseated and diaphoretic at the time. She was able to lower herself down and EMS was called. The episode lasted less then 2 minutes and resolved on its own. No further symptoms since arriving at the hospital. She denies chest pain, shortness of breath or palpitations. EKG reveals sinus mechanism with no acute ST or T wave abnormalities noted. Chest x-ray is negative for acute cardiopulmonary process. CT of the brain is negative for acute intracranial process. Bilateral carotid Doppler negative for flow limiting stenosis. Laboratory data reviewed, WBC 8.6, hemoglobin 12, platelets 232, sodium 137, potassium 4.2, creatinine 0.75, cardiac enzymes negative 2, LDL 65. Current cardiac medications include atorvastatin 10 mg every other day, Toprol 25 mg daily and almost certain/HCTZ 40/12.5 mg daily. 02/06/2019 Pt is seen and examined working with PT. Per the nurse she had been up eating breakfast and had ambulated to the bathroom and around the room without difficulty all morning. When PT was getting her up to use the walker she became acutely light headed. She states this felt similar to how she felt at home however less intense. Blood pressure was taken immediately and was 160/70, telemetry was unremarkable with no evidence of arrhythmia. No chest pain, shortness of breath, nausea, vomiting, palpitations or diaphoresis. She was lowered to a sitting position in bed and started to improve. Echocardiogram obtained reveals preserved LV systolic function with EF 60-65%, mild pulmonary hypertension with RVSP 35 mmHg, mild TR and mild MR. GENERAL: This is a 83-year-old female in no apparent distress at the time of my examination. HEENT: Head is atraumatic, normocephalic. Pupils are equal, round. Sclerae ani cteric. Conjunctivae are clear. Mucous membranes of the mouth are moist. Neck is supple. There is no jugular venous distention. No carotid bruit is heard. LUNGS: Clear to auscultation no wheezes, rales or rhonchi. No chest wall tenderness is noted on palpation or with deep breathing. HEART: Regular rate and rhythm without murmurs, rubs or gallops. S1 and S2 heard. EXTREMITIES: No evidence of peripheral edema and no calf tenderness noted. ASSESSMENT Near syncope, suggestive of orthostatic changes Hypertension Dyslipidemia PLAN No cardiac cause for her symptoms. Witnessed event showed no arrhythmia, no orthostatic changes. Consider neurological etiology. We will continue to follow as needed. Nurse Practitioner note has been reviewed, I agree with a documented findings and plan of care. Patient was seen and examined. Objective - Vital Signs Vital signs: Vital Signs Temp 97.8 F 02/06/19 04:48 Pulse 66 02/06/19 04:48 Resp 16 02/06/19 04:48 BP 145/67 02/06/19 04:48 Pulse Ox 100 02/06/19 04:48 Intake & Output 02/05/19 02/06/19 02/06/19 18:59 06:59 18:59 Intake Total 540 Output Total 2 Balance 538 Weight 68.039 kg Intake: Oral 540 Output: Urine 2 Other: Voiding Method Toilet Toilet Toilet # Voids 3 1 # Bowel Movements 1 1 - Labs CBC & Chem 7: 02/04/19 09:32 02/04/19 09:32 Labs: Abnormal Lab Results - Last 24 Hours (Table) 02/05/19 Range/Units 11:35 D-Dimer 0.65 H (<0.60) mg/L FEU Microbiology - Last 24 Hours (Table) 02/04/19 09:32 Blood Culture - Preliminary Blood No Growth after 48 hours 02/04/19 09:32 Urine Culture - Final Urine,Catheterized
--- NOTE | 2019-02-06 13:24 | CT ---
EXAMINATION TYPE: CT brain wo con DATE OF EXAM: 02/06/2019 COMPARISON: John 1719 HISTORY: Headaches and near syncopal episodes CT DLP: [address] of the brain was performed. The ventricles, basal cisterns and sulci overlying the cerebral convexities demonstrate mild enlargem ent. There is no evidence for intracranial hemorrhage or sulcal effacement. There is decreased attenuation about the periventricular white matter and deep white matter of both c erebral hemispheres, compatible with chronic small vessel ischemia. Differential diagnosis does inclu de demyelination. No mass effects are seen.No midline shift. Osseous calvarium is intact. If symptoms persist consider MRI. IMPRESSION: 1. Age related atrophic and chronic small vessel ischemic change without acute intracranial process s een at this time.
--- NOTE | 2019-02-06 15:22 | P.PN ---
Subjective Progress Note Date: 02/06/19 83-year-old female one of my office patient with past medical history of hypertension hyperlipidemia recurrent bronchitis with bronchial asthma who has generalized arthritis and arthralgias well with multiple injection in the shoulder area with developed to have worsening right knee pain for the last a few weeks become much worse patient had at least a 3 syncopal episode without complete loss of consciousness with any of them today was the worst Wray to her has been having polyuria with no 2 urea on and off and she went down twice through the night and one more time early in the morning before finally decided to come to [facility] according to her description she had severe light headedness and dizziness and her knee almost give out on her one time she didn't remember what happened exactly but doesn't remember passing out completely her workup in [facility] from shows no sign of infection originally UA chest x-ray came back negative with normal white blood cell patient blood pressure fluctuates lightheaded she had heart knee with possible of gouty arthritis versus infection will consult orthopedic the patient be admitted workup for ROM syncope will be done we'll keep patient on nuclear monitoring technician or echo and carotid along with cardiology consultation will be done in the meanwhile further workup on the right knee will be done as well. 02/05: Carotid studies negative for hemodynamically significant stenosis. Urine cultures in progress. Orthopedics is here and aspirating her right knee on clear bright yellow fluid and steroid injection. Chase catheter remains in place which will have removed today. Patient has been up to the bathroom. We anticipate a monitor overnight and discharged home tomorrow. Physical therapy is recommending home with homecare or subacute rehab. Patient has refused home care. Patient has been afebrile, blood pressure 110/65, pulse ox 90% on room air, heart rate 77. D-dimer 0.65. Cardiology is following. Echocardiogram reveals EF of 60-65%, mild tricuspid regurgitation, mild pulmonary hypertension. 02/06: Patient had another episode of near syncope while she was being monitored therapy still in her room. Her vital signs were stable at the time. She did not have full loss consciousness. We will add in a consult with neurology. Cardiology has ruled out underlying cardiac cause. Repeat orthostatics have been negative. Blood pressure 117/55, pulse ox 90% on room air, heart rate 76, afebrile. Right knee synovial fluid showed RBCs 300, nucleated cells 9250, Elsa nuclear WBCs 90, mononuclear WBCs 100, synovial crystals none. Anticipate probable discharge the next 24-48 hours. Objective - Vital Signs Vital signs: Vital Signs Temp 98.3 F 02/06/19 12:16 Pulse 76 02/06/19 12:16 Resp 17 02/06/19 12:16 BP 116/71 02/06/19 12:16 Pulse Ox 98 02/06/19 12:16 Intake & Output 02/05/19 02/06/19 02/06/19 18:59 06:59 18:59 Intake Total 540 Output Total 2 Balance 538 Weight 68.039 kg Intake: Oral 540 Output: Urine 2 Other: Voiding Method Toilet Toilet Toilet # Voids 3 1 2 # Bowel Movements 1 1 - Exam Review of Systems CONSTITUTIONAL: Well-developed no acute respiratory distress. Reports near syncope EYES: No icterus sclerae, no conjunctivitis. EARS, NOSE, MOUTH, THROAT, and FACE: No sore throat, lymphadenopathy, carotid bruits or deformity. RESPIRATORY: No SOB cough or wheezes. CARDIOVASCULAR: No CP, Palpitation, PND, Orthopnea, or angina. GASTROINTESTINAL: No Abd pain, Nausea or vomiting, no Diarrhea or constipation, No GI Bleed, no distention or masses. GENITOURINARY: Negative for Hematuria or UTI, no kidney stones. Positive polyuria and no dysuria INTEGUMENT/BREAST: Negative for any muscular injury with mild osteoarthritis. Positive right knee pain and discomfort with mild restriction to motion in the right shoulder. HEMATOLOGIC/LYMPHATIC: Negative for bleed or purpura. MUSCULOSKELTAL: Negative for Myalgia or arthralgia. NEURLOGICAL: No LOC, Sz or syncope, blurred vision dizziness or abnormality. Positive presyncope with? Of syncope at least one time. BEHAVIORAL/PSYCH: Negative. General Appearance: Alert, cooperative, no distress. Neck HEENT: Supple, no lymphadenopathy, no thyroid enlargement, no carotid bruits. Lungs: Clear to auscultation without crackles or wheezes no rhonchi, no deformity. Chest Wall: Chest wall normal expansion with deep inspiration no tenderness and no deformity was found on exam, no costochondral pain or discomfort. Heart: Regular rate and rhythm, S1, S2 normal, no murmur, rub or gallop. Back: Symmetric, positive mild scoliosis and mild discomfort on the right side not in the midline. Abdomen: Soft, non-tender, bowel sounds active all four quadrants, no masses, no organomegaly. Extremities: No edema, positive varicose vein worse on the right side and the left side. Aspiration being performed to the right knee by orthopedics. Pulses: 2+ and symmetric. Skin: Skin color, texture, tugor normal, no rashes or lesions. Neurologic: Alert oriented x3 cranial nerves II through XII intact, no motor deficit, no abnormal balance or gait. - Labs CBC & Chem 7: 02/04/19 09:32 02/04/19 09:32 Labs: Microbiology - Last 24 Hours (Table) 02/04/19 09:32 Blood Culture - Preliminary Blood No Growth after 48 hours 02/04/19 09:32 Urine Culture - Final Urine,Catheterized Assessment and Plan Plan: 1 syncope: Cardiology consult appreciated. Cardiac cause ruled out. carotid and echocardiogram as above. Neurology consult added. 2 severe right knee pain: Patient might have gouty arthritis versus inflammatory arthritis, uric acid was order along with CBC and sed rate will consult orthopedic patient might need arthrocentesis along with injection if the fluid is a clear and with the current x-ray with see the severity of the arthritis in the right knee if worsening symptom might require an MRI of the knee eventually. 3 polyuria and Nocturia area: With no sign of UTI at this point if patient is symptomatic. Remove Chase catheter. 4 hypertension: Has been on metoprolol succinate 25 mg a day along with Benicar HCT 40/12.5 mg half tablet daily. 5 hyperlipidemia: Remain on Lipitor 10 mg every 2 days. 6 chronic lower back pain with mild scoliosis: Has been on baclofen and mild ant i-inflammatory agent can benefit from Celebrex to meloxicam daily for 2 weeks. 7 DVT prophylaxis: Will have patient on Venodyne boots and knee-high NATY hose and subcutaneous heparin. 8 GI prophylaxis: Start patient on Pepcid 20 mg daily. CODE STATUS: Full code. Discharge plan: home in the next 24-48 hours. Impression and plan of care have been directed as dictated by the signing physician. Smiley Vickers nurse practitioner acting as scribe for signing physician.
--- NOTE | 2019-02-07 00:30 | P.CNNES ---
History of Present Illness Consult date: 02/06/19 Reason for Consult: Presyncopal episodes Chief complaint: Presyncopal episodes History of Present Illness: REFERRING PHYSICIAN: Dr. Jackson HISTORY OF PRESENT ILLNESS: Thank you for allowing me to evaluate Ms. Angeilque Merino is an 83 year-old woman with PMHx of HTN, HLD, osteoarthritis with pain in shoulders and legs, presented to [facility] for presyncopal episodes, consulting Neurology for near syncopal episodes, cardiac etiology ruled out. Patient states that she's been having some worsening pain in her shoulder joints and knees. She describes her dizziness as lightheadedness, no spinning sensation, never lost consciousness, she feels oozy before she feels like she's going to pass out. She never had any rhythmic movement, denies heart palpitations, denies any positional change, no urinary/bowel incontinence, no tongue biting. So far, on telemetry monitoring, no arrhythmia has been reported. Patient reports having intermittent dizzines during this hospitalization as well. PAST MEDICAL HISTORY: HLD, HTN, osteoarthritis PAST SURGICAL HISTORY: 2 C-sections, hysterectomy, knee surgery HOME MEDICATIONS: Atorvastatin 10mg qhs, Calcium, Vitamin D, Metoprolol, Hlmesartan/HCTZ, Baclofen PRN ALLERGIES: Penicillin SOCIAL HISTORY: Denies smoking/EtOH/drug abuse. 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 FAMILY HISTORY: Father of IN at age 58. Mother also had bad osteoarthritis, HTN REVIEW OF SYSTEMS: As above. PHYSICAL EXAMINATION: VITAL SIGNS: T 98.3 HR 80 BP 117/55 Orthostatics negative GEN.: NAD, pleasant and cooperative HEENT: NCAT, sclera without icterus NECK: Supple SKIN AND EXTREMITIES: Warm to touch, no edema NEURO: MENTAL STATUS: Patient alert and oriented to self, place, time. Able to name the current president. Speech fluent, able to name and repeat, following all co mmands readily. No right and left disorientation, extinction to double simultaneous stimulation, finger agnosia, neglect. CRANIAL NERVES II THROUGH XII: II: Pupils are equal and reactive to light sy mmetrically. No afferent pupillary defect. Visual alfonso are intact. III, IV, : No ptosis. Extraocular movements full. No nystagmus. V: Facial sensation intact from V1-3. VII. No clear facial asymmetry. VIII: Hearing intact to finger rub bilaterally. IX, X: Symmetric palate elevation. XII: Shoulder shrug intact. XII: Tongue midline without fasciculation or atrophy. MOTOR: Normal bulk/tone. No pronator drift or tremor. Strength is 5/5 throughout all 4 extremities. SENSORY: Intact to light touch, temperature, pinprick in all 4 extremities. REFLEXES: 2+ throughout. Toes are downgoing. COORDINATION: Finger to nose and heel to blankenship intact. No dysmetria. Rapid alternating movements with good speed and accuracy. GAIT: Narrow-based and stable. Able to toe/heel/tandem walk DIAGNOSTIC TESTING: Laboratory: WBC 8.6 Hgb 12.0 Platelet 232 Na 137 K 4.2 Cl 103 BUN 20 Cr 0.75 Imaging: CT Head 02/06/19: Age related atrophic and chronic small vessel ischemic change without acute intracranial process ASSESSMENT and PLAN: Ms. Merino is an 83 year-old woman with PMHx of HTN, HLD, osteoarthritis with pain in shoulders and legs, presented to [facility] for presyncopal episodes, consulting Neurology for near syncopal episodes, cardiac etiology ruled out. Patient with no objective signs or symptoms of central or peripheral vertigo. Patient only endorsing lightheadedness. At the time of evaluation, I did not have a complete list of patient's medication. It appears that patient has baclofen on her medication list. Unclear when baclofen was started and how often she takes the medication, but consider discontinuing this medication to rule out medication side effect as the etiology of patient's dizziness. Neurology will sign off at this time. Past Medical History Past Medical History: Hyperlipidemia, Hypertension, Pneumonia, Syncope Additional Past Medical History / Comment(s): Arrhythmia, bronchitis, sinus problems, generalized arthritis, constipation. History of Any Multi-Drug Resistant Organisms: None Reported Past Surgical History: Section, Cholecystectomy, Hysterectomy, Orthopedic Surgery Additional Past Surgical History / Comment(s): Stapendectomy with metal wire, R anlke ORIF, colonoscopy Past Anesthesia/Blood Transfusion Reactions: Postoperative Nausea & Vomiting (PONV) Smoking Status: Never smoker - Past Family History Father Family Medical History: Myocardial Infarction (IN) Additional Family Medical History / Comment(s): Father of a IN at the age of 58 yrs. Mother Family Medical History: Hypertension, Osteoarthritis (OA) Additional Family Medical History / Comment(s): Mother had severe arthritis. Medications and Allergies Home Medications Medication Instructions Recorded Confirmed Type Atorvastatin Calcium [Lipitor] 10 mg PO Q48H 10/25/16 02/04/19 History Calcium Carbonate [Calcium] 600 mg PO HS 10/25/16 02/04/19 History Cholecalciferol [Vitamin D3] 5,000 unit PO MOWEFR 10/25/16 02/04/19 History Metoprolol Succinate [Toprol XL] 25 mg PO DAILY 10/25/16 02/04/19 History Olmesartan/Hydrochlorothiazide 0.5 tab PO DAILY 10/25/16 02/04/19 History [Benicar Hct 40-12.5 mg Tablet] Acetaminophen Tab [Tylenol Tab] 325 mg PO Q4H PRN 02/04/19 02/04/19 History Baclofen [Lioresal] 5 mg PO BID PRN 02/04/19 02/04/19 History Allergies Allergy/AdvReac Type Severity Reaction Status Date / Time Penicillins Allergy Unknown Verified 02/04/19 09:42 Childhood Physical Examination - Vital Signs Vital Signs: Vital Signs Temp Pulse Pulse Pulse Pulse Resp BP 02/06/19 12:16 98.3 F 80 84 76 17 117/55 02/06/19 04:48 97.8 F 66 16 02/06/19 00:39 85 90 68 139/64 02/06/19 00:37 85 90 68 16 139/64 02/05/19 21:40 16 02/05/19 20:39 98.0 F 69 16 BP BP BP Pulse Ox 02/06/19 12:16 135/73 116/71 98 02/06/19 04:48 145/67 100 02/06/19 00:39 158/68 145/63 02/06/19 00:37 158/68 145/63 99 02/05/19 21:40 02/05/19 20:39 128/60 99 Intake and Output 02/05/19 02/06/19 02/06/19 22:59 06:59 14:59 Intake Total 540 Output Total 2 Balance 538 Intake: Oral 540 Output: Urine 2 Other: Voiding Method Toilet Toilet # Voids 3 1 # Bowel Movements 1 Weight 68.039 kg Results - Laboratory Findings CBC and BMP: 02/04/19 09:32 02/04/19 09:32 Abnormal Lab Findings: Abnormal Labs 02/04/19 02/04/19 02/04/19 09:32 09:32 09:32 D-Dimer BUN 20 H Glucose 102 H HDL Cholesterol 96 H Urine Blood Small H Hyaline Casts 3 H Urine Mucus Occasional H 02/05/19 11:35 D-Dimer 0.65 H BUN Glucose HDL Cholesterol Urine Blood Hyaline Casts Urine Mucus
[2019-02-07] MEDS: METOPROLOL SUCCINATE (ER) 25 MG TAB.ER.24H PO SCH (08:07)
[2019-02-07] MEDS: LOSARTAN 50 MG TAB PO SCH (08:07)
[2019-02-07] MEDS: HYDROCHLOROTHIAZIDE 25 MG TAB PO SCH (08:08)
[2019-02-07] MEDS: HEPARIN SODIUM,PORCINE 5,000 UNIT/ML 1 ML VIAL SQ SCH ×2 (08:08→19:48)
[2019-02-07] MEDS: ATORVASTATIN 10 MG TAB PO SCH (08:08)
[2019-02-07] MEDS: FAMOTIDINE 20 MG TAB PO SCH (08:08)
[2019-02-07] MEDS: ASPIRIN 325 MG TAB PO SCH (08:08)
--- NOTE | 2019-02-07 08:57 | P.PN ---
Subjective Progress Note Date: 02/07/19 Principal diagnosis: Right knee pain/effusion. This is an 83-year-old female who we're following regarding her right knee pain. She had aspiration and cortisone injection of the knee on 02/05/2019. The aspirate was sent for evaluation. No evidence of infection in the aspirate. The fluid was negative for crystals. The patient states that her knee is significantly improved today after the cortisone injection. Objective - Vital Signs Vital signs: Vital Signs Temp 97.7 F 02/07/19 05:00 Pulse 72 02/07/19 05:00 Resp 18 02/07/19 05:00 BP 137/68 02/07/19 05:00 Pulse Ox 97 02/07/19 05:00 Intake & Output 02/06/19 02/07/19 02/07/19 18:59 06:59 18:59 Other: Voiding Method Toilet Toilet # Voids 2 1 - Exam This is a pleasant 83-year-old female in no acute distress. She is alert and oriented. She is sitting up into the bed. Exam of the reveals no erythema or ecchymosis. There is about a 1+ effusion. She has near full extension with flexion to 90 without difficulty or pain. No pain on palpation about the knee. Full foot and ankle motion without difficulty or pain. Neurovascular status to the lower extremity is intact. - Labs CBC & Chem 7: 02/04/19 09:32 02/04/19 09:32 Labs: Microbiology - Last 24 Hours (Table) 02/04/19 09:32 Blood Culture - Preliminary Blood No Growth after 48 hours Assessment and Plan (1) Degenerative arthritis of right knee Current Visit: Yes Status: Acute Code(s): M17.11 - UNILATERAL PRIMARY OSTEOARTHRITIS, RIGHT KNEE SNOMED Code(s): 571439769077451 (2) Knee effusion Current Visit: Yes Status: Acute Code(s): M25.469 - EFFUSION, UNSPECIFIED KNEE SNOMED Code(s): 363972315 (3) Near syncope Current Visit: Yes Status: Acute Code(s): R55 - SYNCOPE AND COLLAPSE SNOMED Code(s): 660192481 Plan: The clinical findings are discussed the patient. She may progress with activities as tolerated. She may follow-up in our office as needed.
--- NOTE | 2019-02-07 13:46 | P.PN ---
Subjective Progress Note Date: 02/07/19 83-year-old female one of my office patient with past medical history of hypertension hyperlipidemia recurrent bronchitis with bronchial asthma who has generalized arthritis and arthralgias well with multiple injection in the shoulder area with developed to have worsening right knee pain for the last a few weeks become much worse patient had at least a 3 syncopal episode without complete loss of consciousness with any of them today was the worst [place] to her has been having polyuria with no 2 urea on and off and she went down twice through the night and one more time early in the morning before finally decided to come to [facility] according to her description she had severe light headedness and dizziness and her knee almost give out on her one time she didn't remember what happened exactly but doesn't remember passing out completely her workup in [facility] from shows no sign of infection originally UA chest x-ray came back negative with normal white blood cell patient blood pressure fluctuates lightheaded she had heart knee with possible of gouty arthritis versus infection will consult orthopedic the patient be admitted workup for ROM syncope will be done we'll 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 02/05: Carotid studies negative for hemodynamically significant stenosis. Urine cultures in progress. Orthopedics is here and aspirating her right knee on clear bright yellow fluid and steroid injection. Chase catheter remains in place which will have removed today. Patient has been up to the bathroom. We anticipate a monitor overnight and discharged home tomorrow. Physical therapy is recommending home with homecare or subacute rehab. Patient has refused home care. Patient has been afebrile, blood pressure 110/65, pulse ox 90% on room air, heart rate 77. D-dimer 0.65. Cardiology is following. Echocardiogram reveals EF of 60-65%, mild tricuspid regurgitation, mild pulmonary hypertension. 02/06: Patient had another episode of near syncope while she was being monitored therapy still in her room. Her vital signs were stable at the time. She did not have full loss consciousness. We will add in a consult with neurology. Cardiology has ruled out underlying cardiac cause. Repeat orthostatics have been negative. Blood pressure 117/55, pulse ox 90% on room air, heart rate 76, afebrile. Right knee synovial fluid showed RBCs 300, nucleated cells 9250, Elsa nuclear WBCs 90, mononuclear WBCs 100, synovial crystals none. Anticipate probable discharge the next 24-48 hours. 02/07: no new complaints on the patient. She is managing to ambulate with her right knee effusion. Orthopedics continues to follow with no new input today.she is to follow-up in the office as needed. Patient has had no further episodes of weakness/near syncope. She has been seen by neurology with recommendations to discontinue or cut back baclofen which may be contributing to her symptoms. Patient has not received baclofen while in the hospital or Plan will be to continue activity and ambulation and discharge home tomorrow. Objective - Vital Signs Vital signs: Vital Signs Temp 97.7 F 02/07/19 05:00 Pulse 72 02/07/19 08:40 Resp 18 02/07/19 08:40 BP 137/68 02/07/19 05:00 Pulse Ox 97 02/07/19 05:00 Intake & Output 02/06/19 02/07/19 02/07/19 18:59 06:59 18:59 Other: Voiding Method Toilet Toilet Toilet # Voids 2 1 - Exam Review of Systems CONSTITUTIONAL: Well-developed no acute respiratory distress. denies near syncope EYES: No icterus sclerae, no conjunctivitis. EARS, NOSE, MOUTH, THROAT, and FACE: No sore throat, lymphadenopathy, carotid bruits or deformity. RESPIRATORY: No SOB cough or wheezes. CARDIOVASCULAR: No CP, Palpitation, PND, Orthopnea, or angina. GASTROINTESTINAL: No Abd pain, Nausea or vomiting, no Diarrhea or constipation, No GI Bleed, no distention or masses. GENITOURINARY: Negative for Hematuria or UTI, no kidney stones. Positive polyuria and no dysuria INTEGUMENT/BREAST: Negative for any muscular injury with mild osteoarthritis. Positive right knee pain and discomfort with mild restriction to motion in the right shoulder. HEMATOLOGIC/LYMPHATIC: Negative for bleed or purpura. MUSCULOSKELTAL: Negative for Myalgia or arthralgia. NEURLOGICAL: No LOC, Sz or syncope, blurred vision dizziness or abnormality. Positive presyncope with? Of syncope at least one time. BEHAVIORAL/PSYCH: Negative. General Appearance: Alert, cooperative, no distress. patient is sitting on the edge of the bed. She has been ambulate in the hallway by physical therapy and by nursing with no difficulties. Neck HEENT: Supple, no lymphadenopathy, no thyroid enlargement, no carotid bruits. Lungs: Clear to auscultation without crackles or wheezes no rhonchi, no deformity. Chest Wall: Chest wall normal expansion with deep inspiration no tenderness and no deformity was found on exam, no costochondral pain or discomfort. Heart: Regular rate and rhythm, S1, S2 normal, no murmur, rub or gallop. Back: Symmetric, positive mild scoliosis and mild discomfort on the right side not in the midline. Abdomen: Soft, non-tender, bowel sounds active all four quadrants, no masses, no organomegaly. Extremities: No edema, positive varicose vein worse on the right side and the left side. Aspiration being performed to the right knee by orthopedics. Pulses: 2+ and symmetric. Skin: Skin color, texture, tugor normal, no rashes or lesions. Neurologic: Alert oriented x3 cranial nerves II through XII intact, no motor deficit, no abnormal balance or gait. - Labs CBC & Chem 7: 02/04/19 09:32 02/04/19 09:32 Labs: Microbiology - Last 24 Hours (Table) 02/04/19 09:32 Blood Culture - Preliminary Blood No Growth after 72 hours Assessment and Plan Plan: 1 syncope: Cardiology consult appreciated. Cardiac cause ruled out. carotid and echocardiogram as above. Neurology consult appreciated. 2 severe right knee pain: Patient might have gouty arthritis versus inflammatory arthritis, uric acid was order along with CBC and sed rate will consult orthopedic patient might need arthrocentesis along with injection if the fluid is a clear and with the current x-ray with see the severity of the arthritis in the right knee if worsening symptom might require an MRI of the knee eventually. 3 polyuria and Nocturia area: With no sign of UTI at this point if patient is symptomatic. Remove Chase catheter. 4 hypertension: Has been on metoprolol succinate 25 mg a day along with Benicar HCT 40/12.5 mg half tablet daily. 5 hyperlipidemia: Remain on Lipitor 10 mg every 2 days. 6 chronic lower back pain with mild scoliosis: Has been on baclofen and mild anti-inflammatory agent can benefit from Celebrex to meloxicam daily for 2 weeks. 7 DVT prophylaxis: Will have patient on Venodyne boots and knee-high NATY hose and subcutaneous heparin. 8 GI prophylaxis: Start patient on Pepcid 20 mg daily. CODE STATUS: Full code. Discharge plan: home on Saturday Impression and plan of care have been directed as dictated by the signing physician. Smiley Vickers nurse practitioner acting as scribe for signing yolande ross.
[2019-02-07 21:17] VITALS: RESP 18
[2019-02-08 04:45] VITALS: BP 109/64; PULSE 62; TEMP 97.7
[2019-02-08] MEDS: HEPARIN SODIUM,PORCINE 5,000 UNIT/ML 1 ML VIAL SQ SCH (07:41)
[2019-02-08] MEDS: FAMOTIDINE 20 MG TAB PO SCH (07:41)
[2019-02-08] MEDS: METOPROLOL SUCCINATE (ER) 25 MG TAB.ER.24H PO SCH (07:41)
[2019-02-08] MEDS: LOSARTAN 50 MG TAB PO SCH (07:41)
[2019-02-08] MEDS: HYDROCHLOROTHIAZIDE 25 MG TAB PO SCH (07:41)
[2019-02-08] MEDS: ASPIRIN 325 MG TAB PO SCH (07:41)
--- NOTE | 2019-02-08 12:17 | P.DS ---
Providers Date of admission: 02/06/19 14:00 Expected date of discharge: 02/08/19 Attending physician: Cody Jackson Consults: 02/04/19 11:58 Consult Physician Urgent Consulting Provider: Cardiology Trevor Consult Reason/Comments: Near syncope Do you want consulting provider notified?: Yes 02/04/19 12:28 Consult Physician Routine Consulting Provider: Theodore Harp Consult Reason/Comments: right knee effusion Do you want consulting provider notified?: Yes 02/06/19 12:48 Consult Physician Routine Consulting Provider: Anahy Nunez Consult Reason/Comments: near syncope, cardiac etiology ruled out Do you want consulting provider notified?: Yes Primary care physician: [facility] Course: 83-year-old female one of my office patient with past medical history of hypertension hyperlipidemia recurrent bronchitis with bronchial asthma who has generalized arthritis and arthralgias well with multiple injection in the shoulder area with developed to have worsening right knee pain for the last a few weeks become much worse patient had at least a 3 syncopal episode without complete loss of consciousness with any of them today was the worst [place] to her has been having polyuria with no 2 urea on and off and she went down twice through the night and one more time early in the morning before finally decided to come to [facility] according to her description she had severe lightheadedness and dizziness and her knee almost give out on her one time she didn't remember what happened exactly but doesn't remember passing out completely her workup in [facility] from shows no sign of infection originally UA chest x-ray came back negative with normal white blood cell patient blood pressure fluctuates lightheaded she had heart knee with possible of gouty arthritis versus infection will consult orthopedic the patient be admitted workup for ROM syncope will be done we'll keep patient on manager cardiac cath or echo and carotid along with cardiology consultation will be done in the meanwhile further workup on the right knee will be done as well. 02/05: Carotid studies negative for hemodynamically significant stenosis. Urine cultures in progress. Orthopedics is here and aspirating her right knee on clear bright yellow fluid and steroid injection. Chase catheter remains in place which will have removed today. Patient has been up to the bathroom. We anticipate a monitor overnight and discharged home tomorrow. Physical therapy is recommending home with homecare or subacute rehab. Patient has refused home care. Patient has been afebrile, blood pressure 110/65, pulse ox 90% on room air, heart rate 77. D-dimer 0.65. Cardiology is following. Echocardiogram reveals EF of 60-65%, mild tricuspid regurgitation, mild pulmonary hypertension. 02/06: Patient had another episode of near syncope while she was being monitored therapy still in her room. Her vital signs were stable at the time. She did not have full loss consciousness. We will add in a consult with neurology. Cardiology has ruled out underlying cardiac cause. Repeat orthostatics have been negative. Blood pressure 117/55, pulse ox 90% on room air, heart rate 76, afebrile. Right knee synovial fluid showed RBCs 300, nucleated cells 9250, Elsa nuclear WBCs 90, mononuclear WBCs 100, synovial crystals none. Anticipate probable discharge the next 24-48 hours. 02/07: no new complaints on the patient. She is managing to ambulate with her right knee effusion. Orthopedics continues to follow with no new input today.she is to follow-up in the office as needed. Patient has had no further episodes of weakness/near syncope. She has been seen by neurology with recommendations to discontinue or cut back baclofen which may be contributing to her symptoms. Patient has not received baclofen while in the hospital or Plan will be to continue activity and ambulation and discharge home tomorrow. 02/08: Patient denies any new complaints. She has been instructed to avoid taking baclofen as this may be causing some of her symptoms. Patient voices concern that she could have Lyme disease and she has been instructed to follow- up with Dr. Whitten in the office for Lyme testing. Patient has been ambulatory without difficulties. No weakness or near syncopal episodes have occurred. Patient will be discharged home today in stable condition. Discharge diagnoses: 1 syncope possible vasovagal, possibly medication effect of baclofen 2 right knee effusion 3 no sign of UTI 4 hypertension 5 hyperlipidemia 6 chronic lower back pain with mild scoliosis Discharge plan: home on Saturday Impression and plan of care have been directed as dictated by the signing physician. Smiley Vickers nurse practitioner acting as scribe for signing physici an. Patient Condition at Discharge: Good Plan - Discharge Summary Discharge Rx Participant: No New Discharge Prescriptions: Continue Cholecalciferol [Vitamin D3 (25 Mcg = 1000 Iu)] 5,000 unit PO MOWEFR Atorvastatin Calcium [Lipitor] 10 mg PO Q48H Metoprolol Succinate [Toprol XL] 25 mg PO DAILY Calcium Carbonate [Calcium] 600 mg PO HS Olmesartan/Hydrochlorothiazide [Benicar Hct 40-12.5 mg Tablet] 0.5 tab PO DAILY Acetaminophen Tab [Tylenol] 325 mg PO Q4H PRN PRN Reason: Pain Discontinued Baclofen [Lioresal] 5 mg PO BID PRN PRN Reason: Muscle Spasm Discharge Medication List Atorvastatin Calcium [Lipitor] 10 mg PO Q48H 10/25/16 [History] Calcium Carbonate [Calcium] 600 mg PO HS 10/25/16 [History] Cholecalciferol [Vitamin D3 (25 Mcg = 1000 Iu)] 5,000 unit PO MOWEFR 10/25/16 [History] Metoprolol Succinate [Toprol XL] 25 mg PO DAILY 10/25/16 [History] Olmesartan/Hydrochlorothiazide [Benicar Hct 40-12.5 mg Tablet] 0.5 tab PO DAILY 10/25/16 [History] Acetaminophen Tab [Tylenol] 325 mg PO Q4H PRN 02/04/19 [History] Follow up Appointment(s)/Referral(s): Cody Jackson MD [Primary Care Provider] - 1 Week Patient Instructions/Handouts: Syncope (DC), Arthritis (DC) Discharge Disposition: HOME SELF-CARE
== END 2019-02-08 13:54 | disposition home or self-care (01) | DRG 312 ==
LOC: EC 08:37 → 3NMEDONC 12:12 → OBSVTOIN 02-06 14:00
PROVIDERS: ADMIT Internal Medicine Geriatric Medicine; ATTEND Internal Medicine Geriatric Medicine
DX: R55 Syncope and collapse (principal); I27.20 Pulmonary hypertension, unspecified; M41.9 Scoliosis, unspecified; I08.1 Rheumatic disorders of both mitral and tricuspid valves; M17.11 Unilateral primary osteoarthritis, right knee; T42.8X5A Adverse effect of antiparkinsonism drugs and other central muscle-tone depressants, initial encounter; E78.5 Hyperlipidemia, unspecified; G89.29 Other chronic pain; I10 Essential (primary) hypertension; J45.909 Unspecified asthma, uncomplicated; M13.0 Polyarthritis, unspecified; M54.5 Low back pain; R35.0 Frequency of micturition; R35.1 Nocturia; I83.93 Asymptomatic varicose veins of bilateral lower extremities; M25.461 Effusion, right knee; Z79.899 Other long term (current) drug therapy; Z88.0 Allergy status to penicillin; Z90.710 Acquired absence of both cervix and uterus; Z90.49 Acquired absence of other specified parts of digestive tract; Z87.01 Personal history of pneumonia (recurrent); Z82.49 Family history of ischemic heart disease and other diseases of the circulatory system; Z82.61 Family history of arthritis; Y92.009 Unspecified place in unspecified non-institutional (private) residence as the place of occurrence of the external cause
CPT/HCPCS: 36415; 51702; 70450; 71046; 80053; 80061; 81001; 83605; 84484; 84550; 85025; 85379; 85610; 85730; 87040; 87086; 89050; 89060; 93005; 93306; 93880; 96365; 99285

== ENCOUNTER → 2019-02-18 | Outpatient (CLI) | payer MEDICARE, BC ==
--- NOTE | 2019-02-19 15:24 | MM ---
Reason for exam: screening (asymptomatic). Last mammogram was performed 1 year ago. History: Patient is postmenopausal and had first child at age 34. Physical Findings: A clinical breast exam by your physician is recommended on an annual basis and results should be correlated with mammographic findings. MG 3D Screening Mammo W/Cad Bilateral CC and MLO view(s) were taken. Prior study comparison: February 05, 2018, bilateral MG 3d screening mammo w/cad. January 18, 2017, bilateral MG 3d screening mammo w/cad. The breast tissue is heterogeneously dense. This may lower the sensitivity of mammography. Benign appearing calcifications in the right breast. No significant changes when compared with prior studies. ASSESSMENT: Benign, BI-RAD 2 RECOMMENDATION: Routine screening mammogram of both breasts in 1 year.
== END | disposition home or self-care (01) ==
LOC: RADMAMWWP 13:20
PROVIDERS: ATTEND Internal Medicine Geriatric Medicine
DX: Z12.31 Encounter for screening mammogram for malignant neoplasm of breast (principal)
CPT/HCPCS: 77063; 77067

== ENCOUNTER 2019-09-02 09:03 | Emergency (ER) | payer MEDICARE, BC ==
[2019-09-02] MEDS ORDERED: ASPIRIN 81 MG PO STA (09:40)
[2019-09-02] MEDS ORDERED: NITROGLYCERIN SL TABS 0.4 MG TAB SUBLINGUAL STA ×3 (09:40)
--- NOTE | 2019-09-02 09:44 | ED ---
General Adult HPI - General Chief complaint: Extremity Problem,Nontraumatic Stated complaint: arm pain Time Seen by Provider: 09/02/19 09:22 Source: patient, RN notes reviewed Mode of arrival: ambulatory Limitations: no limitations - History of Present Illness Initial comments: Patient is a pleasant 84-year-old female presenting to the emergency Department with complaints of left shoulder discomfort. Onset of symptoms was yesterday afternoon. Symptoms last for a few seconds and then resolved. Discomfort is sharp left shoulder. Discomfort does increase with movement and position changes. Patient does have history of arthritis in her shoulder. Patient denies ever having any chest discomfort at all. No dyspnea. No nausea or diaphoresis. Patient does not feel she needs any medication at this time. - Related Data Home Medications Medication Instructions Recorded Confirmed Atorvastatin Calcium [Lipitor] 10 mg PO Q48H 10/25/16 02/04/19 Calcium Carbonate [Calcium] 600 mg PO HS 10/25/16 02/04/19 Cholecalciferol [Vitamin D3 (25 5,000 unit PO MOWEFR 10/25/16 02/04/19 Mcg = 1000 Iu)] Metoprolol Succinate [Toprol XL] 25 mg PO DAILY 10/25/16 02/04/19 Olmesartan/Hydrochlorothiazide 0.5 tab PO DAILY 10/25/16 02/04/19 [Benicar Hct 40-12.5 mg Tablet] Acetaminophen Tab [Tylenol] 325 mg PO Q4H PRN 02/04/19 02/04/19 Allergies Allergy/AdvReac Type Severity Reaction Status Date / Time Penicillins Allergy Unknown Verified 09/02/19 09:14 Childhood Review of Systems ROS Statement: Those systems with pertinent positive or pertinent negative responses have been documented in the HPI. ROS Other: All systems not noted in ROS Statement are negative. Constitutional: Denies: fever Eyes: Denies: eye pain ENT: Denies: ear pain Respiratory: Denies: cough Cardiovascular: Denies: chest pain Endocrine: Denies: fatigue Gastrointestinal: Denies: abdominal pain Genitourinary: Denies: dysuria Musculoskeletal: Reports: as per HPI Skin: Denies: rash Neurological: Denies: weakness Past Medical History Past Medical History: Hyperlipidemia, Hypertension, Pneumonia, Syncope Additional Past Medical History / Comment(s): Arrhythmia, bronchitis, sinus pro blems, generalized arthritis, constipation. History of Any Multi-Drug Resistant Organisms: None Reported Past Surgical History: Section, Cholecystectomy, Hysterectomy, Orthopedic Surgery Additional Past Surgical History / Comment(s): Stapendectomy with metal wire, R anlke ORIF, colonoscopy Past Anesthesia/Blood Transfusion Reactions: Postoperative Nausea & Vomiting (PONV) Past Psychological History: No Psychological Hx Reported Smoking Status: Never smoker - Past Family History Father Family Medical History: Myocardial Infarction ([place]) Additional Family Medical History / Comment(s): Father of a [place] at the age of 58 yrs. Mother Family Medical History: Hypertension, Osteoarthritis (OA) Additional Family Medical History / Comment(s): Mother had severe arthritis. General Exam Limitations: no limitations General appearance: alert, in no apparent distress Head exam: Present: normocephalic Eye exam: Present: normal appearance Neck exam: Present: normal inspection Respiratory exam: Present: normal lung sounds bilaterally. Absent: chest wall tenderness Cardiovascular Exam: Present: regular rate, normal rhythm Expanded Peripheral pulses: 2+: Radial (R), Radial (L), Dorsalis Pedis (R), Dorsalis Pedis (L) GI/Abdominal exam: Present: soft. Absent: distended, tenderness Extremities exam: Present: full ROM (Patient does have discomfort with active range of motion), tenderness (Mild tenderness left anterior shoulder) Back exam: Present: normal inspection. Absent: tenderness Neurological exam: Present: alert. Absent: motor sensory deficit Expanded Sensory exam: Upper Extremity Light Touch: Normal Motor strength exam: RUE: 5, LUE: 5 Psychiatric exam: Present: normal affect, normal mood Skin exam: Present: normal color Course Vital Signs 09/02/19 09/02/19 09/02/19 09:10 09:55 10:00 Temperature 98.5 F Pulse Rate 97 81 89 Respiratory 16 18 16 Rate Blood Pressure 139/71 147/72 132/78 O2 Sat by Pulse 97 98 100 Oximetry 09/02/19 09/02/19 09/02/19 10:05 10:11 10:15 Temperature Pulse Rate 63 77 80 Respiratory 18 18 18 Rate Blood Pressure 57/33 84/48 110/64 O2 Sat by Pulse 100 97 100 Oximetry 09/02/19 11:00 Temperature Pulse Rate 70 Respiratory 16 Rate Blood Pressure 113/68 O2 Sat by Pulse 98 Oximetry EKG Findings - EKG Comments: EKG Findings:: Normal sinus rhythm at 86. [place] 126. QRS 84. QT 350. QTC 418. Normal axis. Normal QRS. No acute ST change. Medical Decision Making - Medical Decision Making Patient reevaluated and resting comfortably in bed. No change of symptoms. Patient states no improvement with nitroglycerin. Patient and family updated on results and need for follow-up. Patient states when she saw orthopedics for this they started her on Tylenol with Codeine and states she will take that. - Lab Data Result diagrams: 09/02/19 09:39 09/02/19 09:39 Lab Results 09/02/19 09/02/19 09/02/19 Range/Units 09:39 09:39 09:39 WBC 5.3 (3.8-10.6) k/uL RBC 4.32 (3.80-5.40) m/uL Hgb 12.3 (11.4-16.0) gm/dL Hct 37.6 (34.0-46.0) % MCV 87.1 (80.0-100.0) fL MCH 28.6 (25.0-35.0) pg MCHC 32.8 (31.0-37.0) g/dL RDW 13.1 (11.5-15.5) % Plt Count 297 (150-450) k/uL Neutrophils % 63 % Lymphocytes % 25 % Monocytes % 7 % Eosinophils % 2 % Basophils % 2 % Neutrophils # 3.4 (1.3-7.7) k/uL Lymphocytes # 1.3 (1.0-4.8) k/uL Monocytes # 0.3 (0-1.0) k/uL Eosinophils # 0.1 (0-0.7) k/uL Basophils # 0.1 (0-0.2) k/uL PT 9.8 (9.0-12.0) sec INR 0.9 (<1.2) APTT 23.6 (22.0-30.0) sec D-Dimer 0.63 H (<0.60) mg/L FEU Sodium 134 L (137-145) mmol/L Potassium 4.6 (3.5-5.1) mmol/L Chloride 101 (98-107) mmol/L Carbon Dioxide 24 (22-30) mmol/L Anion Gap 9 mmol/L BUN 29 H (7-17) mg/dL Creatinine 0.67 (0.52-1.04) mg/dL Est GFR (CKD-EPI)AfAm >90 (>60 ml/min/1.73 sqM) Est GFR (CKD-EPI)NonAf 81 (>60 ml/min/1.73 sqM) Glucose 95 (74-99) mg/dL Calcium 9.7 (8.4-10.2) mg/dL Magnesium 1.9 (1.6-2.3) mg/dL Total Bilirubin 0.6 (0.2-1.3) mg/dL AST 25 (14-36) U/L ALT 13 (4-34) U/L Alkaline Phosphatase 76 (38-126) U/L Creatine Kinase 79 (30-135) U/L Troponin I (0.000-0.034) ng/mL Total Protein 7.3 (6.3-8.2) g/dL Albumin 4.3 (3.5-5.0) g/dL 09/02/19 Range/Units 09:39 WBC (3.8-10.6) k/uL RBC (3.80-5.40) m/uL Hgb (11.4-16.0) gm/dL Hct (34.0-46.0) % MCV (80.0-100.0) fL MCH (25.0-35.0) pg MCHC (31.0-37.0) g/dL RDW (11.5-15.5) % Plt Count (150-450) k/uL Neutrophils % % Lymphocytes % % Monocytes % % Eosinophils % % Basophils % % Neutrophils # (1.3-7.7) k/uL Lymphocytes # (1.0-4.8) k/uL Monocytes # (0-1.0) k/uL Eosinophils # (0-0.7) k/uL Basophils # (0-0.2) k/uL PT (9.0-12.0) sec INR (<1.2) APTT (22.0-30.0) sec D-Dimer (<0.60) mg/L FEU Sodium (137-145) mmol/L Potassium (3.5-5.1) mmol/L Chloride (98-107) mmol/L Carbon Dioxide (22-30) mmol/L Anion Gap mmol/L BUN (7-17) mg/dL Creatinine (0.52-1.04) mg/dL Est GFR (CKD-EPI)AfAm (>60 ml/min/1.73 sqM) Est GFR (CKD-EPI)NonAf (>60 ml/min/1.73 sqM) Glucose (74-99) mg/dL Calcium (8.4-10.2) mg/dL Magnesium (1.6-2.3) mg/dL Total Bilirubin (0.2-1.3) mg/dL AST (14-36) U/L ALT (4-34) U/L Alkaline Phosphatase (38-126) U/L Creatine Kinase (30-135) U/L Troponin I <0.012 (0.000-0.034) ng/mL Total Protein (6.3-8.2) g/dL Albumin (3.5-5.0) g/dL - Radiology Data Radiology results: image reviewed (X-ray left shoulder shows no fracture. Osteopenia and arthropathy. Two-view chest x-ray shows no acute process.) Disposition Clinical Impression: Arthralgia of left shoulder region Disposition: HOME SELF-CARE Condition: Stable Instructions (If sedation given, give patient instructions): Arthralgia (ED), Shoulder Pain (ED) Additional Instructions: Please follow-up with primary care physician and orthopedics in the next couple days for recheck. Return for chest pain or back pain, difficulty breathing, worsening or changing symptoms or other concerns. Is patient prescribed a controlled substance at d/c from ED?: No Referrals: Cody Jackson MD [Primary Care Provider] - 1-2 days Time of Disposition: 11:41
[2019-09-02 10:05] LABS: Basophils # (A) 0.1 k/uL (0-0.2); Basophils % (A) 2 %; Eosinophils # (A) 0.1 k/uL (0-0.7); Eosinophils % (A) 2 %; HCT 37.6 % (34.0-46.0); HGB 12.3 gm/dL (11.4-16.0); Lymphocytes # (A) 1.3 k/uL (1.0-4.8); Lymphocytes % (A) 25 %; MCH 28.6 pg (25.0-35.0); MCHC 32.8 g/dL (31.0-37.0); MCV 87.1 fL (80.0-100.0); Mean Platelet Volume 7.7; Monocytes # (A) 0.3 k/uL (0-1.0); Monocytes % (A) 7 %; Neutrophils # (A) 3.4 k/uL (1.3-7.7); Neutrophils % (A) 63 %; Platelet Count 297 k/uL (150-450); RBC 4.32 m/uL (3.80-5.40); RDW 13.1 % (11.5-15.5); WBC 5.3 k/uL (3.8-10.6)
[2019-09-02] MEDS ORDERED: SODIUM CHLORIDE 0.9% 1,000 ML IV ONE (10:10)
[2019-09-02 10:14] LABS: ALT 13 U/L (4-34); AST 25 U/L (14-36); African American GFR (CKD) >90 (>60 ml/min/1.73 sqM); Albumin 4.3 g/dL (3.5-5.0); Alkaline Phosphatase 76 U/L (38-126); Anion Gap 9 mmol/L; Blood Urea Nitrogen 29 mg/dL (7-17); Calcium 9.7 mg/dL (8.4-10.2); Carbon Dioxide 24 mmol/L (22-30); Chloride 101 mmol/L (98-107); Creatine Kinase 79 U/L (30-135); Glucose 95 mg/dL (74-99); Magnesium 1.9 mg/dL (1.6-2.3); Non-African American GFR(CKD) 81 (>60 ml/min/1.73 sqM); Potassium 4.6 mmol/L (3.5-5.1); Sodium 134 mmol/L (137-145); Total Bilirubin 0.6 mg/dL (0.2-1.3); Total Protein 7.3 g/dL (6.3-8.2)
[2019-09-02 10:20] LABS: INR 0.9 (<1.2); Partial Thromboplastin Time 23.6 sec (22.0-30.0); Prothrombin Time 9.8 sec (9.0-12.0)
--- NOTE | 2019-09-02 10:39 | XR ---
EXAMINATION TYPE: XR chest 2V DATE OF EXAM: 09/02/2019 COMPARISON: 02/04/2019 HISTORY: Chest pain TECHNIQUE: Frontal and lateral views of the chest are obtained. FINDINGS: There is no focal air space opacity, pleural effusion, or pneumothorax seen. The cardiac silhouette size is within normal limits dextroscoliosis of the thoracolumbar junction and diffuse oss eous mineralization. Mild multilevel degenerative change of the spine. IMPRESSION: No acute cardiopulmonary process.
--- NOTE | 2019-09-02 10:39 | XR ---
EXAMINATION TYPE: XR shoulder complete LT DATE OF EXAM: 09/02/2019 COMPARISON: NONE HISTORY: Pain TECHNIQUE: Three views are submitted. FINDINGS: The osseous structures are intact. There is no acute fracture or dislocation. Diffuse osteopenia. Ar thropathy of the AC joint. Soft tissue calcifications noted. IMPRESSION: 1. No acute fracture. 2. Diffuse osteopenia and arthropathy of the AC joint.
[2019-09-02 10:44] LABS: D-Dimer 0.63 mg/L FEU (<0.60)
[2019-09-02 11:01] VITALS: PULSE 70
[2019-09-02] MEDS ORDERED: ACET/COD 300 MG/30 MG STARTER PACK 6 TAB BTL PO STA (11:41)
[2019-09-02 12:00] VITALS: BP 115/60; RESP 18; TEMP 97.7
== END 2019-09-02 12:00 | disposition home or self-care (01) ==
LOC: EC 09:03
DX: M25.512 Pain in left shoulder (principal); E78.5 Hyperlipidemia, unspecified; I10 Essential (primary) hypertension; M19.90 Unspecified osteoarthritis, unspecified site; Z88.0 Allergy status to penicillin; Z79.891 Long term (current) use of opiate analgesic; Z79.899 Other long term (current) drug therapy; Z82.61 Family history of arthritis
CPT/HCPCS: 36415; 71046; 80053; 82550; 83735; 84484; 85025; 85379; 85610; 85730; 93005; 96360; 99284

== ENCOUNTER 2020-04-20 16:44 | Inpatient (IN) | payer OTHER, MEDICARE, BC ==
[2020-04-20] MEDS ORDERED: SODIUM CHLORIDE 0.9% 500 ML 500 ML IV STA (17:32)
[2020-04-20] MEDS ORDERED: RX INFO: IV CONTRAST WAS GIVEN 1 EACH MISC MISCELLANE PRN (17:32)
[2020-04-20] MEDS ORDERED: fentaNYL (PF) 50 MCG/ML 2 ML AMP IVP STA (17:33)
[2020-04-20 17:58] LABS: Basophils % (A) 0 %; Eosinophils % (A) 0 %; HCT 35.1 % (34.0-46.0); HGB 11.3 gm/dL (11.4-16.0); Lymphocytes # (A) 0.9 k/uL (1.0-4.8); Lymphocytes % (A) 9 %; MCH 28.2 pg (25.0-35.0); MCHC 32.1 g/dL (31.0-37.0); MCV 87.8 fL (80.0-100.0); Mean Platelet Volume 7.7; Monocytes # (A) 0.6 k/uL (0-1.0); Monocytes % (A) 6 %; Neutrophils # (A) 8.1 k/uL (1.3-7.7); Neutrophils % (A) 84 %; Platelet Count 402 k/uL (150-450); RDW 13.4 % (11.5-15.5); WBC 9.7 k/uL (3.8-10.6)
[2020-04-20 18:06] LABS: ALT 34 U/L (4-34); AST 66 U/L (14-36); African American GFR (CKD) >90 (>60 ml/min/1.73 sqM); Albumin 3.7 g/dL (3.5-5.0); Alkaline Phosphatase 90 U/L (38-126); Anion Gap 10 mmol/L; Blood Urea Nitrogen 37 mg/dL (7-17); Calcium 9.3 mg/dL (8.4-10.2); Carbon Dioxide 23 mmol/L (22-30); Chloride 102 mmol/L (98-107); Creatine Kinase 62 U/L (30-135); Glucose 116 mg/dL (74-99); Magnesium 1.9 mg/dL (1.6-2.3); Non-African American GFR(CKD) 79 (>60 ml/min/1.73 sqM); Potassium 4.7 mmol/L (3.5-5.1); Sodium 135 mmol/L (137-145); Total Bilirubin 1.2 mg/dL (0.2-1.3); Total Protein 7.2 g/dL (6.3-8.2)
[2020-04-20 18:38] LABS: INR 0.9 (<1.2); Prothrombin Time 9.6 sec (9.0-12.0)
--- NOTE | 2020-04-20 18:38 | XR ---
EXAMINATION TYPE: XR ankle complete LT DATE OF EXAM: 04/20/2020 COMPARISON: NONE HISTORY: Ankle pain TECHNIQUE: 3 views FINDINGS: There is soft tissue swelling around the ankle joint. There is plantar calcaneal spurring. Ankle mortise is anatomic. I see no fracture nor dislocation. IMPRESSION: Soft tissue swelling. No fracture seen.
[2020-04-20 18:40] LABS: Partial Thromboplastin Time 20.9 sec (22.0-30.0)
--- NOTE | 2020-04-20 18:40 | XR ---
EXAMINATION TYPE: XR shoulder complete LT DATE OF EXAM: 04/20/2020 COMPARISON: 09/02/2019 HISTORY: Shoulder pain TECHNIQUE: 3 views FINDINGS: I see no fracture nor dislocation. Glenohumeral joint is intact. There is narrowing of the subacromial joint space. IMPRESSION: There is subacromial joint space narrowing that appears new compared to old exam. No frac ture seen. Calcification measuring 2 x 1 cm is present at the greater tuberosity of the humerus incre ased compared to old exam and consistent with progression of calcific tendinitis.
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
[2020-04-20] MEDS ORDERED: AZITHROMYCIN 500 MG in SODIUM CHLORIDE 0.9% 250 ML IVPB STA (20:01)
[2020-04-20] MEDS ORDERED: cefTRIAXone IN SWFI 1,000 MG/10 ML SYRINGE IVP STA (20:01)
[2020-04-20] MEDS ORDERED: NALOXONE 0.4 MG/ML 1 ML VIAL IV PRN (20:04)
[2020-04-20] MEDS: MORPHINE SULFATE 4 MG/ML SYRINGE IV PRN (20:22)
[2020-04-20] MEDS ORDERED: HYDROcodone/APAP 5-325MG 1 EACH TAB PO PRN (20:29)
[2020-04-20] MEDS ORDERED: IPRATROPIUM-ALBUTEROL 3 ML NEB INHALATION PRN (21:12)
[2020-04-21] MEDS ORDERED: IPRATROPIUM-ALBUTEROL 3 ML NEB INHALATION SCH
[2020-04-21 05:37] LABS: Basophils % (A) 0 %; Eosinophils % (A) 1 %; HCT 31.1 % (34.0-46.0); Lymphocytes # (A) 1.1 k/uL (1.0-4.8); Lymphocytes % (A) 13 %; MCH 27.6 pg (25.0-35.0); MCHC 31.3 g/dL (31.0-37.0); MCV 88.3 fL (80.0-100.0); Mean Platelet Volume 7.1; Monocytes # (A) 0.6 k/uL (0-1.0); Monocytes % (A) 7 %; Neutrophils # (A) 7.1 k/uL (1.3-7.7); Neutrophils % (A) 79 %; Platelet Count 408 k/uL (150-450); RBC 3.52 m/uL (3.80-5.40); RDW 13.7 % (11.5-15.5)
[2020-04-21 05:41] LABS: HGB 9.7 gm/dL (11.4-16.0)
[2020-04-21 05:58] LABS: ALT 24 U/L (4-34); AST 28 U/L (14-36); African American GFR (CKD) >90 (>60 ml/min/1.73 sqM); Albumin 2.8 g/dL (3.5-5.0); Alkaline Phosphatase 79 U/L (38-126); Anion Gap 4 mmol/L; Blood Urea Nitrogen 27 mg/dL (7-17); Calcium 8.4 mg/dL (8.4-10.2); Carbon Dioxide 27 mmol/L (22-30); Chloride 105 mmol/L (98-107); Glucose 103 mg/dL (74-99); Non-African American GFR(CKD) 82 (>60 ml/min/1.73 sqM); Potassium 3.3 mmol/L (3.5-5.1); Sodium 136 mmol/L (137-145); Total Bilirubin 0.5 mg/dL (0.2-1.3); Total Protein 5.5 g/dL (6.3-8.2)
[2020-04-21] MEDS ORDERED: Potassium Replacement Protocol 1 EACH MISC MISCELLANE PRN (06:03)
[2020-04-21] MEDS: POTASSIUM CHLORIDE ER 10 MEQ TAB.ER.PRT PO SCH (06:06)
[2020-04-21] MEDS: POTASSIUM CHLORIDE ER 20 MEQ TAB.ER PO SCH ×2 (06:39→11:07)
--- NOTE | 2020-04-21 07:19 | XR ---
EXAMINATION TYPE: XR chest 1V portable DATE OF EXAM: 04/21/2020 HISTORY: Shortness of breath. COMPARISON: None. TECHNIQUE: Single view of the chest is submitted. FINDINGS: Demonstrated are scattered senescent parenchymal change. Bibasilar opacity may reflect underlying infiltrate, atelectasis and/or effusion. No pneumothorax is visible at this time. The heart is stable. Hilar and mediastinal structures are within normal limits. Degenerative changes are seen of the dorsal spine. IMPRESSION: 1. Bibasilar opacity may reflect underlying infiltrate, atelectasis and/or effusion.
[2020-04-21] MEDS ORDERED: DOCUSATE 100 MG CAP PO PRN (08:16)
[2020-04-21] MEDS: IPRATROPIUM-ALBUTEROL 3 ML NEB INHALATION SCH ×4 (08:55→20:48)
[2020-04-21] MEDS ORDERED: PANTOPRAZOLE 40 MG/10 ML VIAL IVP SCH (09:00)
[2020-04-21] MEDS ORDERED: hydroCHLOROthiazide 25 MG TAB PO SCH (09:00)
[2020-04-21] MEDS ORDERED: LOSARTAN 25 MG TAB PO SCH (09:00)
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
--- NOTE | 2020-04-21 09:43 | US ---
EXAMINATION TYPE: US chest DATE OF EXAM: 04/21/2020 COMPARISON: NONE CLINICAL HISTORY: Markings for thoracentesis by pulmonary staff. pleural effusion on xray TECHNIQUE: Targeted ultrasound of the posterior lower bilateral EXAM MEASUREMENTS: Right Pleural Effusion pocket size: 9.6 cm Right skin surface to fluid distance: 2.8 cm Left Pleural Effusion pocket size: 1.8 cm Patient could not sit up on her own, she was screaming in pain while aid help assisted, images are limited but larger pocket of pleural effusion was seen on the right chest Right side marked for possible thoracentesis outside the dept. Left side NOT marked Pulmonologists are able to review the images in the patient?s EMR. IMPRESSIONS: As above
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
[2020-04-21] MEDS: METOPROLOL SUCCINATE (ER) 25 MG TAB.ER.24H PO SCH (11:07)
[2020-04-21] MEDS: ATORVASTATIN 10 MG TAB PO SCH (11:08)
[2020-04-21] MEDS: Acetaminophen-Codeine 300-30mg TAB PO PRN (11:09)
[2020-04-21] MEDS: ASPIRIN 81 MG PO SCH (11:12)
[2020-04-21] MEDS: HEPARIN SODIUM,PORCINE 5,000 UNIT/ML 1 ML VIAL SQ SCH ×2 (11:13→20:56)
[2020-04-21] MEDS: AZITHROMYCIN 500 MG in SODIUM CHLORIDE 0.9% 250 ML IVPB SCH (11:15)
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
--- NOTE | 2020-04-21 14:32 | XR ---
EXAMINATION TYPE: XR chest 1V portable DATE OF EXAM: 04/21/2020 HISTORY: Status post thoracentesis. COMPARISON: 04/21/2020 TECHNIQUE: Single view of the chest is submitted. FINDINGS: Demonstrated are scattered senescent parenchymal change. There is no evidence for pneumothorax this t anthony. Basilar infiltrates persist although there is slight improvement noted. The heart is stable. Hilar and mediastinal structures are within normal limits. Degenerative changes are seen of the dorsal spine. IMPRESSION: 1. There is no evidence for pneumothorax this time.
[2020-04-21] MEDS ORDERED: NALOXONE 0.4 MG/ML 1 ML VIAL IV PRN (15:12)
[2020-04-21] MEDS ORDERED: ONDANSETRON 4 MG/2 ML VIAL IVP PRN (15:12)
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
[2020-04-21] MEDS: PANTOPRAZOLE 40 MG TABLET PO SCH (15:24)
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
[2020-04-21] MEDS: ROPIVACAINE 250 MG, fentaNYL (PF) 625 MCG in SODIUM CHLORIDE 0.9% 188 ML EPIDURAL PRN (17:37)
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
[2020-04-21] MEDS: CALCIUM CARBONATE 500 MG CHEWABLE PO SCH (19:35)
[2020-04-21 20:58] LABS: Appearance,BF Bloody; Nucleated Cells, Body Fluid 2500 /uL; RBC, Body Fluid 787500 /uL
[2020-04-21 21:13] LABS: Mononuclear WBC,Body Fluid 25 %; Polynuclear WBC,Body Fluid 74 %; Total Cells Counted,Body Fluid 100
--- NOTE | 2020-04-22 00:22 | PCN ---
PROCEDURE NOTE PROCEDURE: Right-sided thoracentesis. There was informed consent and universal timeout. OPERATORS: Dr. Saxena, Dr. Weller and Deedee Cornejo. Indication Pleural effusion. A time-out was completed verifying correct patient, procedure, site, positioning , and implant (s) or special equipment if applicable. Ultrasound guidance was used and appropriate fluid pocket was identified and marked. Patient was positioned, prepped and draped in usual sterile fashion. Lidocaine was used to anesthetize the area. A Thoracentesis catheter was introduced into the pleural space and fluid was removed. Blood loss was none. A chest x-ray was ordered to evaluate for pneumothorax. Total Fluid Removed: 150 mL. Color of Fluid: Bloody. Fluid was sent for appropriate laboratory tests. Patient tolerated the procedure well and there were no complications. 150 mL of bloody material was removed from the right pleural space. The fluid was sent for analysis. There was no immediate complication. The posterior chest was marked by ultrasound. The patient's procedure took place without difficulty. Chest x-ray was ordered. The patient tolerated the procedure well. There was no complications. Additional recommendations and suggestions are forthcoming. Again the fluid will be sent for analysis, about 150 mL of bloody fluid removed from the right pleural space. MMODL / IJN: [id number] /
[2020-04-22 04:01] LABS: Appearance,Urine Clear (Clear); Bilirubin,Urine Negative (Negative); Blood,Urine Small (Negative); Color,Urine Yellow; Glucose,Urine (UA) Negative (Negative); Ketones,Urine Negative (Negative); Leukocyte Esterase,Urine Trace (Negative); Mucus,Urine Occasional /hpf; Nitrite,Urine Negative (Negative); Protein,Urine Trace (Negative); RBC,Urine 6 /hpf (0-5); Specific Gravity,Urine 1.029 (1.001-1.035); Squamous Epithelial Cell,Urine 1 /hpf (0-4); Urobilinogen,Urine <2.0 mg/dL (<2.0); WBC,Urine 6 /hpf (0-5)
[2020-04-22 04:37] LABS: HCT 29.9 % (34.0-46.0); HGB 9.5 gm/dL (11.4-16.0); MCH 28.1 pg (25.0-35.0); MCHC 31.7 g/dL (31.0-37.0); MCV 88.6 fL (80.0-100.0); Mean Platelet Volume 7.2; Platelet Count 400 k/uL (150-450); RBC 3.37 m/uL (3.80-5.40); RDW 13.5 % (11.5-15.5); WBC 9.4 k/uL (3.8-10.6)
[2020-04-22 04:58] LABS: ALT 29 U/L (4-34); AST 31 U/L (14-36); African American GFR (CKD) >90 (>60 ml/min/1.73 sqM); Albumin 2.9 g/dL (3.5-5.0); Alkaline Phosphatase 91 U/L (38-126); Anion Gap 4 mmol/L; Blood Urea Nitrogen 22 mg/dL (7-17); Calcium 8.5 mg/dL (8.4-10.2); Carbon Dioxide 27 mmol/L (22-30); Chloride 105 mmol/L (98-107); Glucose 114 mg/dL (74-99); Non-African American GFR(CKD) 81 (>60 ml/min/1.73 sqM); Potassium 4.2 mmol/L (3.5-5.1); Sodium 136 mmol/L (137-145); Total Bilirubin 0.5 mg/dL (0.2-1.3); Total Protein 5.8 g/dL (6.3-8.2)
[2020-04-22 05:11] LABS: Total Protein, Body Fluid 3138 mg/dL
[2020-04-22 05:25] LABS: Glucose, Body Fluid 91 mg/dL
[2020-04-22] MEDS ORDERED: DEXAMETHASONE SOD PHOSPHATE 10 MG/ML 1 ML VIAL IV ONE (06:00)
[2020-04-22] MEDS ORDERED: LIDOCAINE 1% (10MG/ML) FOR IV START INTRADERMA PRN (06:00)
[2020-04-22] MEDS ORDERED: MORPHINE SULFATE 2 MG/ML SYRINGE IV PRN (06:00)
[2020-04-22] MEDS ORDERED: METOCLOPRAMIDE 5 MG/ML 2 ML VIAL IVP PRN (06:00)
[2020-04-22] MEDS ORDERED: IV FLUID CONTINUATION 1,000 ML IV ONE (06:28)
[2020-04-22] MEDS ORDERED: MIDAZOLAM 2 MG/2 ML VIAL ONE (07:39)
[2020-04-22] MEDS ORDERED: PROPOFOL 10 MG/ML 20 ML VIAL IV ONE (07:39)
[2020-04-22] MEDS ORDERED: fentaNYL (PF) 50 MCG/ML 2 ML AMP ONE (07:39)
[2020-04-22] MEDS: IPRATROPIUM-ALBUTEROL 3 ML NEB INHALATION SCH ×4 (08:13→20:32)
[2020-04-22] MEDS ORDERED: SODIUM CHLORIDE 0.9% 50 ML with ceFAZolin 1,000 MG IV ONE ×2 (08:13)
[2020-04-22] MEDS ORDERED: LIDOCAINE 1% INJ 10MG/ML (20 ML MDV) SQ ONE ×2 (08:16)
[2020-04-22] MEDS: ROPIVACAINE 250 MG, fentaNYL (PF) 625 MCG in SODIUM CHLORIDE 0.9% 188 ML EPIDURAL PRN (09:07)
[2020-04-22] MEDS ORDERED: SODIUM CHLORIDE 0.9% 1,000 ML IV ONE (09:12)
--- NOTE | 2020-04-22 09:30 | XR ---
EXAMINATION TYPE: XR chest 1V portable DATE OF EXAM: 04/22/2020 HISTORY: Shortness of breath. COMPARISON: 04/21/2020 TECHNIQUE: Single view of the chest is submitted. FINDINGS: Right-sided chest tube is noted to be in place. There is a tiny right-sided pneumothorax identified e stimated at less than 10%. Small amount of subcutaneous air is seen. Left lower lobe atelectasis or infiltrate noted. The heart is stable. Hilar and mediastinal structures are within normal limits. Degenerative changes are seen of the dorsal spine. IMPRESSION: 1. Right-sided chest tube is noted to be in place. There is a tiny right-sided pneumothorax identifi ed estimated at less than 10%. Small amount of subcutaneous air is seen. Left lower lobe atelectasis or infiltrate noted.
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
[2020-04-22] MEDS: HEPARIN SODIUM,PORCINE 5,000 UNIT/ML 1 ML VIAL SQ SCH ×2 (10:38→20:35)
[2020-04-22] MEDS: POTASSIUM CHLORIDE ER 10 MEQ TAB.ER.PRT PO SCH (10:39)
[2020-04-22] MEDS: KETOROLAC 15 MG/ML 1 ML VIAL IVP SCH ×2 (10:39→17:23)
[2020-04-22] MEDS: LACTATED RINGERS 1,000 ML IV SCH (10:41)
[2020-04-22] MEDS: PANTOPRAZOLE 40 MG TABLET PO SCH (10:41)
[2020-04-22] MEDS: METOPROLOL SUCCINATE (ER) 25 MG TAB.ER.24H PO SCH (10:41)
[2020-04-22] MEDS: AZITHROMYCIN 500 MG in SODIUM CHLORIDE 0.9% 250 ML IVPB SCH (10:48)
[2020-04-22] MEDS: Acetaminophen-Codeine 300-30mg TAB PO PRN (12:07)
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
[2020-04-22] MEDS: CALCIUM CARBONATE 500 MG CHEWABLE PO SCH (17:23)
[2020-04-22] MEDS: CHOLECALCIFEROL 1,000 UNIT TAB PO SCH (17:23)
--- NOTE | 2020-04-22 19:02 | P.PN ---
Progress Note - Text Progress Note Date: 04/22/20 (3224) Anesthesiology Epidural Catheter Day 2 Pt seen and examined. VAS 4/10. No Nausea Vomiting Pruritis. Epidural site intact without induration. Ropivacaine 0.1% with Fentanyl 2.5 mcg 5cc/hr. Regular rate, non labored respirations. Heparin subq q 12. Anticipate d/c on saturday.
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
[2020-04-22] MEDS: MORPHINE SULFATE 4 MG/ML SYRINGE IV PRN (20:24)
[2020-04-23] MEDS: KETOROLAC 15 MG/ML 1 ML VIAL IVP SCH ×5 (00:24→22:53)
[2020-04-23] MEDS: MORPHINE SULFATE 4 MG/ML SYRINGE IV PRN ×3 (02:19→22:47)
[2020-04-23 04:51] LABS: HCT 30.5 % (34.0-46.0); HGB 9.6 gm/dL (11.4-16.0); Hypochromasia Slight; MCH 28.3 pg (25.0-35.0); MCHC 31.7 g/dL (31.0-37.0); MCV 89.2 fL (80.0-100.0); Mean Platelet Volume 7.3; Platelet Count 467 k/uL (150-450); RBC 3.41 m/uL (3.80-5.40); RDW 13.7 % (11.5-15.5)
[2020-04-23 05:02] LABS: Albumin 3.1 g/dL (3.5-5.0); Calcium 8.7 mg/dL (8.4-10.2); Potassium 4.7 mmol/L (3.5-5.1); Total Bilirubin 0.4 mg/dL (0.2-1.3); Total Protein 5.9 g/dL (6.3-8.2)
[2020-04-23] MEDS: LACTATED RINGERS 1,000 ML IV SCH (06:34)
[2020-04-23] MEDS: Acetaminophen-Codeine 300-30mg TAB PO PRN (06:50)
[2020-04-23] MEDS: IPRATROPIUM-ALBUTEROL 3 ML NEB INHALATION SCH ×4 (07:22→20:36)
--- NOTE | 2020-04-23 07:48 | XR ---
EXAMINATION TYPE: XR chest 1V portable DATE OF EXAM: 04/23/2020 COMPARISON: Prior chest x-ray 04/22/2020 HISTORY: Chest tube TECHNIQUE: Single frontal view of the chest is obtained. FINDINGS: Right-sided chest tube remains in place. No evident pneumothorax. Subcutaneous emphysema, subsegmental basilar atelectatic changes persist, retrocardiac density is again noted and is obscured left hemidiaphragm. Heart size may be accentuated by rotation and technique. Aorta is dense. Patient 's sternal fracture is not visible. Scoliotic curvature noted of the spine. IMPRESSION: Findings are similar to prior exam. Basilar atelectasis, correlate to exclude pneumonia.
--- NOTE | 2020-04-23 08:30 | P.PN ---
Progress Note - Text Progress Note Date: 04/23/20 (873) Anesthesia Status post rib fractures with epidural day 3 Patient seen and examined. Doing well without complaint. VAS less than 4. No nausea vomiting or pruritus. Ropivacaine 0.1% with fentanyl 2.5 mcg/mL at 5 an hour. Heparin 5000 every 12. Platelets greater than 150 Objective: Vital signs reviewed Lungs: Good chest excursion Abdomen: Appears nondistended Other: Epidural Site Intact without induration. Dressing intact Neuro: No apparent motor block. Sensory within normal limits. Assessment: Status post rib fractures catheter day 3 Plan: Continue current care with your medical management. Anticipate discontinuation tomorrow.
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
[2020-04-23] MEDS: ASPIRIN 81 MG PO SCH (09:46)
[2020-04-23] MEDS: PANTOPRAZOLE 40 MG TABLET PO SCH (09:46)
[2020-04-23] MEDS: HEPARIN SODIUM,PORCINE 5,000 UNIT/ML 1 ML VIAL SQ SCH ×2 (09:46→20:45)
[2020-04-23] MEDS: METOPROLOL SUCCINATE (ER) 25 MG TAB.ER.24H PO SCH (09:47)
[2020-04-23] MEDS: AZITHROMYCIN 500 MG TAB PO SCH (09:47)
[2020-04-23] MEDS: ATORVASTATIN 10 MG TAB PO SCH (09:47)
[2020-04-23] MEDS: POTASSIUM CHLORIDE ER 10 MEQ TAB.ER.PRT PO SCH (09:47)
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
[2020-04-23] MEDS: ROPIVACAINE 250 MG, fentaNYL (PF) 625 MCG in SODIUM CHLORIDE 0.9% 188 ML EPIDURAL PRN (18:21)
[2020-04-23] MEDS: CALCIUM CARBONATE 500 MG CHEWABLE PO SCH (18:21)
[2020-04-24 04:43] LABS: HCT 29.2 % (34.0-46.0); HGB 9.1 gm/dL (11.4-16.0); Hypochromasia Slight; MCHC 31.3 g/dL (31.0-37.0); MCV 89.6 fL (80.0-100.0); Mean Platelet Volume 7.9; Platelet Count 437 k/uL (150-450); RBC 3.26 m/uL (3.80-5.40); RDW 13.7 % (11.5-15.5); WBC 8.7 k/uL (3.8-10.6)
[2020-04-24 05:07] LABS: Calcium 8.3 mg/dL (8.4-10.2); Potassium 5.2 mmol/L (3.5-5.1)
[2020-04-24] MEDS: KETOROLAC 15 MG/ML 1 ML VIAL IVP SCH ×3 (06:36→19:36)
[2020-04-24] MEDS: LACTATED RINGERS 1,000 ML IV SCH (06:37)
--- NOTE | 2020-04-24 07:51 | XR ---
EXAMINATION TYPE: XR chest 1V portable DATE OF EXAM: 04/24/2020 COMPARISON: 04/23/2020 INDICATION: Right-sided hemopneumothorax TECHNIQUE: Single frontal view of the chest is obtained. FINDINGS: The heart size is upper limits of normal. The pulmonary vasculature is normal. There is a small infiltrate at the right base. Small left pleural fluid collection is present. There is a right-sided chest tube directed towards the apex. No sizable pneumothorax is evident. Mini mal sliver of pneumothorax may remain adjacent to the second rib. IMPRESSION: 1. No sizable pneumothorax, chest tube remains in position. 2. Right lower lobe infiltrate. 3. Small left pleural fluid collection
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
[2020-04-24] MEDS: HEPARIN SODIUM,PORCINE 5,000 UNIT/ML 1 ML VIAL SQ SCH ×2 (08:48→20:27)
[2020-04-24] MEDS: AZITHROMYCIN 500 MG TAB PO SCH (08:48)
[2020-04-24] MEDS: POTASSIUM CHLORIDE ER 10 MEQ TAB.ER.PRT PO SCH (08:48)
[2020-04-24] MEDS: METOPROLOL SUCCINATE (ER) 25 MG TAB.ER.24H PO SCH (08:48)
[2020-04-24] MEDS: PANTOPRAZOLE 40 MG TABLET PO SCH (08:48)
[2020-04-24] MEDS: Acetaminophen-Codeine 300-30mg TAB PO PRN (08:49)
[2020-04-24] MEDS: IPRATROPIUM-ALBUTEROL 3 ML NEB INHALATION SCH ×4 (09:16→21:48)
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
--- NOTE | 2020-04-24 10:25 | P.PN ---
Progress Note - Text Progress Note Date: 04/24/20 (176) Anesthesia Catheter day 4 Status post rib fractures with epidural day 4 Patient seen and examined. Doing well without complaint. VAS less than 4 except on deep cough. No nausea vomiting or pruritus. Ropivacaine 0.1% with fentanyl 2.5 mcg/mL at I cc an hour. Objective: Vital signs reviewed Lungs: Good chest excursion Abdomen: Appears nondistended Other: Epidural Site Intact without induration. Dressing intact Neuro: No apparent motor block. Sensory within normal limits. Assessment: Status post rib fractures catheter day #4 Plan: Continue current care with your medical management. Order written to discontinued epidural catheter between 3 PM and next subcu heparin dose.
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
[2020-04-24] MEDS: CALCIUM CARBONATE 500 MG CHEWABLE PO SCH (19:32)
[2020-04-25] MEDS: KETOROLAC 15 MG/ML 1 ML VIAL IVP SCH ×2 (01:07→06:19)
[2020-04-25 04:33] LABS: Basophils % (A) 1 %; Eosinophils # (A) 0.2 k/uL (0-0.7); Eosinophils % (A) 3 %; HCT 29.1 % (34.0-46.0); Hypochromasia Slight; Lymphocytes # (A) 1.1 k/uL (1.0-4.8); Lymphocytes % (A) 15 %; MCH 27.8 pg (25.0-35.0); MCV 89.9 fL (80.0-100.0); Mean Platelet Volume 6.9; Monocytes # (A) 0.4 k/uL (0-1.0); Monocytes % (A) 5 %; Neutrophils # (A) 5.7 k/uL (1.3-7.7); Neutrophils % (A) 76 %; Platelet Count 482 k/uL (150-450); RBC 3.24 m/uL (3.80-5.40); RDW 13.9 % (11.5-15.5); WBC 7.5 k/uL (3.8-10.6)
[2020-04-25 04:54] LABS: African American GFR (CKD) >90 (>60 ml/min/1.73 sqM); Anion Gap 4 mmol/L; Blood Urea Nitrogen 21 mg/dL (7-17); Calcium 8.2 mg/dL (8.4-10.2); Carbon Dioxide 23 mmol/L (22-30); Chloride 110 mmol/L (98-107); Glucose 93 mg/dL (74-99); Non-African American GFR(CKD) 81 (>60 ml/min/1.73 sqM); Sodium 137 mmol/L (137-145)
[2020-04-25] MEDS: LACTATED RINGERS 1,000 ML IV SCH (06:19)
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
[2020-04-25] MEDS: IPRATROPIUM-ALBUTEROL 3 ML NEB INHALATION SCH ×4 (08:13→18:37)
--- NOTE | 2020-04-25 08:34 | XR ---
EXAMINATION TYPE: XR chest 1V portable DATE OF EXAM: 04/25/2020 COMPARISON: 04/24/2020 HISTORY: Right-sided hemopneumothorax TECHNIQUE: Single frontal view of the chest is obtained. FINDINGS: Chest tube is been removed and there is right-sided consolidation and pleural effusion inc reased from prior exam. No sizable pneumothorax. Left lower lobe infiltrate noted with pleural effusi on and the heart is enlarged. Atherosclerotic change aorta. IMPRESSION: 1. Bilateral infiltrate and pleural effusion slightly progressed on the right. 2. No sizable pneumothorax post chest tube removal.
[2020-04-25] MEDS: METOPROLOL SUCCINATE (ER) 25 MG TAB.ER.24H PO SCH (09:28)
[2020-04-25] MEDS: POTASSIUM CHLORIDE ER 10 MEQ TAB.ER.PRT PO SCH (09:29)
[2020-04-25] MEDS: HEPARIN SODIUM,PORCINE 5,000 UNIT/ML 1 ML VIAL SQ SCH ×2 (09:29→20:08)
[2020-04-25] MEDS: AZITHROMYCIN 500 MG TAB PO SCH (09:29)
[2020-04-25] MEDS: PANTOPRAZOLE 40 MG TABLET PO SCH (09:29)
[2020-04-25] MEDS: ATORVASTATIN 10 MG TAB PO SCH (09:30)
[2020-04-25] MEDS: ASPIRIN 81 MG PO SCH (09:30)
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
[2020-04-25 13:43] LABS: Glucose, BF Source Pleural Fluid; LDH, Body Fluid Source Pleural Fluid
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
[2020-04-25] MEDS: Acetaminophen-Codeine 300-30mg TAB PO PRN (20:07)
[2020-04-25] MEDS: CHOLECALCIFEROL 1,000 UNIT TAB PO SCH (20:08)
[2020-04-25] MEDS: CALCIUM CARBONATE 500 MG CHEWABLE PO SCH (20:08)
[2020-04-26] MEDS: Acetaminophen-Codeine 300-30mg TAB PO PRN ×2 (01:03→22:09)
[2020-04-26] MEDS: LACTATED RINGERS 1,000 ML IV SCH (05:54)
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
[2020-04-26] MEDS: IPRATROPIUM-ALBUTEROL 3 ML NEB INHALATION SCH ×4 (08:43→19:18)
[2020-04-26] MEDS: POTASSIUM CHLORIDE ER 10 MEQ TAB.ER.PRT PO SCH (10:36)
[2020-04-26] MEDS: HEPARIN SODIUM,PORCINE 5,000 UNIT/ML 1 ML VIAL SQ SCH ×2 (10:36→20:16)
[2020-04-26] MEDS: AZITHROMYCIN 500 MG TAB PO SCH (10:37)
[2020-04-26] MEDS: METOPROLOL SUCCINATE (ER) 25 MG TAB.ER.24H PO SCH (10:37)
[2020-04-26] MEDS: PANTOPRAZOLE 40 MG TABLET PO SCH (10:37)
[2020-04-26 10:51] VITALS: BMI 25.1
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
[2020-04-26] MEDS: CALCIUM CARBONATE 500 MG CHEWABLE PO SCH (18:55)
[2020-04-27] MEDS: LACTATED RINGERS 1,000 ML IV SCH (05:19)
[2020-04-27] MEDS: Acetaminophen-Codeine 300-30mg TAB PO PRN ×2 (05:48→17:03)
[2020-04-27] MEDS: IPRATROPIUM-ALBUTEROL 3 ML NEB INHALATION SCH ×3 (08:08→15:15)
[2020-04-27] MEDS: METOPROLOL SUCCINATE (ER) 25 MG TAB.ER.24H PO SCH (10:23)
[2020-04-27] MEDS: AZITHROMYCIN 500 MG TAB PO SCH (10:23)
[2020-04-27] MEDS: ASPIRIN 81 MG PO SCH (10:24)
[2020-04-27] MEDS: PANTOPRAZOLE 40 MG TABLET PO SCH (10:24)
[2020-04-27] MEDS: POTASSIUM CHLORIDE ER 10 MEQ TAB.ER.PRT PO SCH (10:24)
[2020-04-27] MEDS: ATORVASTATIN 10 MG TAB PO SCH (10:24)
[2020-04-27] MEDS: HEPARIN SODIUM,PORCINE 5,000 UNIT/ML 1 ML VIAL SQ SCH (10:25)
[2020-04-27 10:53] VITALS: BP 142/75; RESP 18; TEMP 98.2
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
[2020-04-27 15:29] VITALS: PULSE 96
== END 2020-04-27 17:20 | disposition home health service (06) | DRG 564 ==
LOC: EC 16:44 → 2SICU 20:04
PROVIDERS: ADMIT Internal Medicine Geriatric Medicine; ATTEND Internal Medicine Geriatric Medicine
PROC: 00HU33Z Insertion of Infusion Device into Spinal Canal, Percutaneous Approach (ICD-10-PCS; 2020-04-21)
PROC: 3E0R3NZ Introduction of Analgesics, Hypnotics, Sedatives into Spinal Canal, Percutaneous Approach (ICD-10-PCS; 2020-04-21)
PROC: 0W993ZZ Drainage of Right Pleural Cavity, Percutaneous Approach (ICD-10-PCS; 2020-04-21)
PROC: 0W9930Z Drainage of Right Pleural Cavity with Drainage Device, Percutaneous Approach (ICD-10-PCS; principal; 2020-04-22 07:30)
DX: S22.20XA Unspecified fracture of sternum, initial encounter for closed fracture (principal); J69.0 Pneumonitis due to inhalation of food and vomit; S27.1XXA Traumatic hemothorax, initial encounter; J90 Pleural effusion, not elsewhere classified; J98.11 Atelectasis; E78.5 Hyperlipidemia, unspecified; I10 Essential (primary) hypertension; I25.10 Atherosclerotic heart disease of native coronary artery without angina pectoris; I27.20 Pulmonary hypertension, unspecified; K59.00 Constipation, unspecified; M35.00 Sjogren syndrome, unspecified; Z20.828 Contact with and (suspected) exposure to other viral communicable diseases; M13.0 Polyarthritis, unspecified; R32 Unspecified urinary incontinence; R09.02 Hypoxemia; S90.02XA Contusion of left ankle, initial encounter; S40.012A Contusion of left shoulder, initial encounter; Z98.890 Other specified postprocedural states; Z82.49 Family history of ischemic heart disease and other diseases of the circulatory system; Z87.01 Personal history of pneumonia (recurrent); Z98.891 History of uterine scar from previous surgery; Z90.49 Acquired absence of other specified parts of digestive tract; Z90.710 Acquired absence of both cervix and uterus; Z79.899 Other long term (current) drug therapy; Z82.61 Family history of arthritis; Z88.0 Allergy status to penicillin; W22.11XA Striking against or struck by driver side automobile airbag, initial encounter; Y92.410 Unspecified street and highway as the place of occurrence of the external cause
CPT/HCPCS: 36415; 71045; 71260; 76604; 80048; 80053; 81001; 82550; 82945; 83615; 83690; 83735; 83880; 84132; 84157; 84484; 85025; 85027; 85610; 85730; 86850; 86900; 86901; 87040; 87070; 87102; 87116; 87205; 87206; 87252; 87496; 87498; 87502; 87529; 87634; 87635; 87798; 88108; 88305; 89050; 93005; 94640; 96361; 96365; 96375; 99285

== ENCOUNTER → 2021-02-02 | Outpatient (CLI) | payer MEDICARE, BC ==
--- NOTE | 2021-02-03 13:38 | MM ---
Reason for exam: screening (asymptomatic). Last mammogram was performed 1 year and 11 months ago. History: Patient is postmenopausal and had first child at age 34. Physical Findings: A clinical breast exam by your physician is recommended on an annual basis and results should be correlated with mammographic findings. MG 3D Screening Mammo W/Cad Bilateral CC and MLO view(s) were taken. Prior study comparison: February 18, 2019, bilateral MG 3d screening mammo w/cad. February 05, 2018, bilateral MG 3d screening mammo w/cad. The breast tissue is heterogeneously dense. This may lower the sensitivity of mammography. Benign appearing bilateral calcifications. No significant changes when compared with prior studies. ASSESSMENT: Benign, BI-RAD 2 RECOMMENDATION: Routine screening mammogram of both breasts in 1 year.
== END | disposition home or self-care (01) ==
LOC: RADMAMWWP 13:38
PROVIDERS: ATTEND Internal Medicine Geriatric Medicine
DX: Z12.31 Encounter for screening mammogram for malignant neoplasm of breast (principal); Z78.0 Asymptomatic menopausal state
CPT/HCPCS: 77063; 77067

== ENCOUNTER → 2022-02-05 | Outpatient (CLI) | payer MEDICARE, BC ==
--- NOTE | 2022-02-06 11:32 | MM ---
Reason for Exam: Screening (asymptomatic). Last screening mammogram was performed 12 month(s) ago. Patient History: Menarche at age 15. First Full-Term at age 34. Late child-bearing (after 30). Left ovary removed at age 45. Right ovary removed at age 45. Hysterectomy at age 45. Postmenopausal. Estrogen for 10 years from age 50 until age 60. Prior Study Comparison: 02/05/2018 Bilateral Screening Mammogram, [facility]. 02/18/2019 Bilateral Screening Mammogram, [facility]. 02/02/2021 Bilateral Screening Mammogram, [facility]. Tissue Density: The breast tissue is heterogeneously dense. This may lower the sensitivity of mammography. Findings: Analyzed By CAD. There is no suspicious group of microcalcifications or new suspicious mass in either breast. Benign-appearing bilateral calcifications. No significant change from prior exam. Heterogenous dense breast tissue may lower the sensitivity of mammography. Overall Assessment: Benign, BI-RAD 2 Management: Screening Mammogram of both breasts in 1 year. A clinical breast exam by your physician is recommended on an annual basis and results should be correlated with mammographic findings. Electronically signed and approved by: Kong Mccabe D.O.
== END | disposition home or self-care (01) ==
LOC: RADMAMWWP 13:09
PROVIDERS: ATTEND Internal Medicine Geriatric Medicine
DX: Z12.31 Encounter for screening mammogram for malignant neoplasm of breast (principal); R92.1 Mammographic calcification found on diagnostic imaging of breast; Z78.0 Asymptomatic menopausal state
CPT/HCPCS: 77063; 77067

== ENCOUNTER → 2024-04-22 | Outpatient (CLI) | payer MEDICARE, BC ==
--- NOTE | 2024-04-23 10:32 | MM ---
Reason for Exam: Screening (asymptomatic). Last mammogram was performed 1 year(s) and 1 month(s) ago. Patient History: Menarche at age 15. First Full-Term at age 34. Late child-bearing (after 30). Left ovary removed at age 45. Right ovary removed at age 45. Hysterectomy at age 45. Postmenopausal. Estrogen for 10 years from age 50 until age 60. Prior Study Comparison: 02/02/2021 Bilateral Screening Mammogram, [facility]. 02/05/2022 Bilateral MG 3D screening mammo w/cad, [facility]. 04/18/2023 Bilateral MG 3D screening mammo w/cad, [facility]. Tissue Density: The breasts are heterogeneously dense, which may obscure small masses. Findings: Analyzed By CAD. Right breast: There is no suspicious group of microcalcifications or new suspicious mass. Left breast: There is no suspicious group of microcalcifications or new suspicious mass. Overall Assessment: Negative, BI-RAD 1 Management: Screening Mammogram of both breasts in [address] [facility] will attempt to contact patient to return for supplemental views and ultrasound if indicated. Patient should continue monthly self-breast exams. A clinical breast exam by your physician is recommended on an annual basis. This exam should not preclude additional follow-up of suspicious palpable abnormalities. Note on Zakia scores and lifetime risk: 1. A Zakia score greater than 3% is considered moderate risk. If this is the case, consider specialist referral to assess eligibility for a risk reducing agent. 2. If overall lifetime risk for the development of breast cancer is 20% or higher, the patient may qualify for future screening with alternating mammogram and breast MRI. [facility], , 04/23/2024 10:29 AM. Electronically signed and approved by: Jhony Angulo DO
== END | disposition home or self-care (01) ==
LOC: RADMAMWWP 12:21
PROVIDERS: ATTEND Internal Medicine Geriatric Medicine
DX: Z12.31 Encounter for screening mammogram for malignant neoplasm of breast
CPT/HCPCS: 77063; 77067